=== PATIENT | male | born 1970 | race Caucasian/White ===

== ENCOUNTER 2021-03-02 11:21 | Inpatient (IN) | payer MEDICARE, OTHER ==
[~2021-03-02] VITALS: Ht 170.2 cm; Wt 54.5 kg
[2021-03-02] MEDS ORDERED: ipratropium/albuterol 3ml nebule NEB STA (12:16)
[2021-03-02] MEDS ORDERED: dexamethasone 4mg tablet PO ONE ×2 (12:20)
[2021-03-02 12:37] LABS: BASOPHILS # (AUTO) 0.1 X10'3 (0-0.2); EOSINOPHILS # (AUTO) 0.1 X10'3 (0-0.9); HEMATOCRIT 34.2 % (42.0-52.0); HEMOGLOBIN 11.3 g/dl (14.0-17.9); LYMPHOCYTES # (AUTO) 2.7 X10'3 (1.1-4.8); MEAN CORPUSCULAR HEMOGLOBIN 30.5 PG (27.0-31.0); MEAN CORPUSCULAR HGB CONC 32.9 g/dL (33.0-36.5); MEAN CORPUSCULAR VOLUME 92.6 FL (78-98); MONOCYTES # (AUTO) 1.4 X10'3 (0-0.9); NEUTROPHILS % (AUTO) 79.6 % (42-75)
[2021-03-02 12:38] LABS: BASOPHILS % (AUTO) 0.5 % (0-1); EOSINOPHILS % (AUTO) 0.4 % (0-6); LYMPHOCYTES % (AUTO) 12.9 % (21-51); MEAN PLATELET VOLUME 6.7 FL (7.4-10.4); MONOCYTES % (AUTO) 6.6 % (2-12); NEUTROPHILS # (AUTO) 16.4 X10'3 (1.8-7.7); PLATELET COUNT 642 X10'3 (140-440); RED CELL DISTRIBUTION WIDTH 14.1 % (11.5-14.5); WHITE BLOOD COUNT 20.6 X10'3 (4.5-11.0)
[2021-03-02 12:45] LABS: ALBUMIN 1.8 G/DL (3.4-5.0); ANION GAP 6 (8-16); BLOOD UREA NITROGEN 17 MG/DL (7-18); BUN/CREATININE RATIO 19.3 (5.4-32.0); CALCIUM 8.3 MG/DL (8.5-10.1); CHLORIDE 98 MMOL/L (99-107); CREATININE 0.88 MG/DL (0.60-1.10); GLUCOSE 118 MG/DL (70-104); POTASSIUM 4.1 MMOL/L (3.5-5.1); SODIUM 138 MMOL/L (135-145); eGFR > 90 ML/MIN
[2021-03-02] MEDS ORDERED: CefTRIAXone/D5W-Rocephin 1gm 50 ML IV ONE (13:00)
[2021-03-02] MEDS ORDERED: normal saline 1000ml 1,000 ML IV ONE (13:00)
[2021-03-02] MEDS ORDERED: iohexol 300mg/ml 100ml inj. ONE (13:10)
[2021-03-02] MEDS ORDERED: piperacillin/tazo 4.5gm/100ml 100 ML IV ONE (14:13)
[2021-03-02] MEDS ORDERED: FLUT1DIS15 INH (15:18)
[2021-03-02] MEDS ORDERED: IPRA4AER IH (15:19)
[2021-03-02] MEDS ORDERED: AZEL23SP BOTHNARES (15:19)
[2021-03-02] MEDS ORDERED: bisacodyl 10mg suppository rectal RC PRN (15:20)
[2021-03-02] MEDS ORDERED: acetaminophen 325mg tablet PO PRN ×2 (15:20)
[2021-03-02] MEDS ORDERED: HYDROmorphone inj. 0.5 MG/0.5 ML DISP.SYRIN IV PRN (15:20)
[2021-03-02] MEDS ORDERED: ondansetron 4mg rapidly disintigrating tab PO PRN (15:20)
[2021-03-02] MEDS ORDERED: diphenhydrAMINE 25mg capsule PO PRN (15:20)
[2021-03-02] MEDS ORDERED: diphenhydrAMINE 50 mg/ml inj IV PRN (15:20)
[2021-03-02] MEDS ORDERED: morphine 2 MG/ML inj. syringe IV PRN ×2 (15:20)
[2021-03-02] MEDS ORDERED: ondansetron/PF 4mg/2ml inj IV PRN (15:20)
[2021-03-02] MEDS ORDERED: mag hydrox/Alum hydrox/simeth 30ml oral suspension PO PRN (15:20)
[2021-03-02] MEDS ORDERED: HYDROcodone/acetaminophen 5mg/325mg tablet PO PRN (15:20)
[2021-03-02] MEDS ORDERED: acetaminophen 650mg rectal suppository RC PRN (15:20)
[2021-03-02] MEDS ORDERED: magnesium hydroxide 30ml (MOM) UD suspension PO PRN (15:20)
[2021-03-02] MEDS: normal saline 1000ml 1,000 ML IV SCH (15:43)
[2021-03-02 15:56] LABS: PARTIAL THROMBOPLASTIN TIME 23 SECONDS (22-32)
[2021-03-02 16:03] LABS: HEMOGLOBIN A1C 5.5 % (4.5-6.2)
[2021-03-02 16:09] LABS: CREATINE KINASE 29 U/L (39-308); MAGNESIUM 2.2 MG/DL (1.5-2.4); PHOSPHORUS 2.8 MG/DL (2.3-4.5)
[2021-03-02 16:26] LABS: HIV ANTIBODY 1&2 RAPID NON-REACTIVE (Neg)
[2021-03-02 16:31] LABS: URINE AMPHETAMINE SCREEN NEGATIVE (Neg); URINE BARBITUATE SCREEN NEGATIVE (Neg); URINE BENZODIAZEPINES SCREEN NEGATIVE (Neg); URINE CANNABINOID SCREEN NEGATIVE (Neg); URINE COCAINE SCREEN NEGATIVE (Neg); URINE METHADONE SCREEN NEGATIVE (Neg); URINE OPIATE SCREEN NEGATIVE (Neg); URINE PHENCYCLIDINE SCREEN NEGATIVE (Neg)
[2021-03-02 16:33] LABS: CLARITY,URINE CLEAR (Clear); COLOR,URINE Yellow (Yellow); UA COLLECTION TYPE CLN CATCH MIDSTREAM
[2021-03-02 16:34] LABS: GLUCOSE, URINE Negative (Neg); KETONES,URINE Negative (Neg); LEUKOCYTE ESTERASE ,URINE NEGATIVE (Neg); NITRITES, URINE NEGATIVE (Neg); OCCULT BLOOD,URINE NEGATIVE (Neg); PROTEIN,URINE Negative (Neg); UROBILINOGEN,URINE 0.2 E.U/dL (0.2-1.0)
[2021-03-02 18:00] VITALS: BP 127/89
--- NOTE | 2021-03-02 18:40 | NUR ---
Problems reprioritized. Patient report given, questions answered & plan of care reviewed with FORD Minor.
[2021-03-02] MEDS: ipratropium/albuterol 3ml nebule NEB SCH ×2 (19:00→23:33)
[2021-03-02] MEDS: vancomycin/NS 1 GM ADD-VANTAGE 250 ML IV SCH (20:00)
[2021-03-02] MEDS: docusate sod 100mg capsule PO SCH (20:54)
[2021-03-02] MEDS: methylPREDNISolone sod succ/PF 40mg inj. IV SCH (20:54)
[2021-03-02] MEDS: heparin, porcine 5000 units/ml vial SQ SCH (20:54)
[2021-03-02] MEDS: CLINDAMYCIN 300mg/NS 50ml IVPB 50 ML IV SCH (20:54)
[2021-03-02] MEDS: HYDROcodone/acetaminophen 10/325mg tab PO PRN (20:55)
[2021-03-02] MEDS ORDERED: temazepam 15mg capsule PO PRN (21:00)
[2021-03-03] VITALS (7 sets, daily range): BP systolic 110–132; BP diastolic 68–81
[2021-03-03] MEDS: normal saline 1000ml 1,000 ML IV SCH ×3 (01:43→21:20)
[2021-03-03] MEDS: ipratropium/albuterol 3ml nebule NEB SCH ×6 (03:00→22:40)
[2021-03-03] MEDS: CLINDAMYCIN 300mg/NS 50ml IVPB 50 ML IV SCH (03:41)
[2021-03-03 05:54] LABS: EOSINOPHILS % (AUTO) 0 % (0-6); HEMOGLOBIN 10.9 g/dl (14.0-17.9); RED CELL DISTRIBUTION WIDTH 14.3 % (11.5-14.5)
[2021-03-03 05:57] LABS: BASOPHILS % (AUTO) 0.1 % (0-1); HEMATOCRIT 31.8 % (42.0-52.0); LYMPHOCYTES # (AUTO) 1.5 X10'3 (1.1-4.8); LYMPHOCYTES % (AUTO) 8.5 % (21-51); MEAN CORPUSCULAR HEMOGLOBIN 31.4 PG (27.0-31.0); MEAN CORPUSCULAR HGB CONC 34.1 g/dL (33.0-36.5); MEAN PLATELET VOLUME 6.5 FL (7.4-10.4); MONOCYTES # (AUTO) 0.4 X10'3 (0-0.9); MONOCYTES % (AUTO) 2.2 % (2-12); NEUTROPHILS # (AUTO) 15.7 X10'3 (1.8-7.7); NEUTROPHILS % (AUTO) 89.2 % (42-75); PLATELET COUNT 661 X10'3 (140-440); RED BLOOD COUNT 3.45 X10'6 (4.70-6.10); WHITE BLOOD COUNT 17.6 X10'3 (4.5-11.0)
[2021-03-03 06:33] LABS: ALANINE AMINOTRANSFERASE 22 U/L (12-78); ALBUMIN 1.7 G/DL (3.4-5.0); ALBUMIN/GLOBULIN RATIO 0.3 (1.1-1.5); ALKALINE PHOSPHATASE 127 IU/L (46-116); ANION GAP 6 (8-16); ASPARTATE AMINO TRANSFERASE 14 U/L (10-37); BILIRUBIN,TOTAL 0.1 MG/DL (0.1-1.0); BLOOD UREA NITROGEN 20 MG/DL (7-18); BUN/CREATININE RATIO 20.2 (5.4-32.0); CALCIUM 8.8 MG/DL (8.5-10.1); CHLORIDE 105 MMOL/L (99-107); CREATININE 0.99 MG/DL (0.60-1.10); GLUCOSE 130 MG/DL (70-104); POTASSIUM 4.7 MMOL/L (3.5-5.1); SODIUM 140 MMOL/L (135-145); TOTAL CARBON DIOXIDE 29.5 MMOL/L (24-32); eGFR 79 ML/MIN
[2021-03-03 06:59] LABS: PLATELET ESTIMATE INCREASED; TOTAL CELLS COUNTED 100
--- NOTE | 2021-03-03 07:14 | NUR ---
Patient in room PCU 3027. I have received report from FORD HERNANDEZ, and had the opportunity to ask questions and assume patient care.
[2021-03-03] MEDS: heparin, porcine 5000 units/ml vial SQ SCH ×2 (08:44→20:57)
[2021-03-03] MEDS: methylPREDNISolone sod succ/PF 40mg inj. IV SCH ×2 (08:44→20:57)
[2021-03-03] MEDS: docusate sod 100mg capsule PO SCH ×2 (08:45→20:57)
[2021-03-03] MEDS: pantoprazole 40mg Tablet.DR PO SCH (08:55)
[2021-03-03] MEDS: piperacillin/tazo 4.5gm/100ml 100 ML IV SCH ×3 (08:55→16:06)
[2021-03-03] MEDS: vancomycin/NS 1 GM ADD-VANTAGE 250 ML IV SCH ×2 (10:08→20:00)
--- NOTE | 2021-03-03 13:33 | NUR ---
PT SHOWED THIS NURSE A SMALL ROCK REPORTING THE ROCK, PLUS 2 OTHER ROCKS, HAD BEEN IN HIS DINNER ROLL. PT REPORTS THAT HE SWALLOWED THE OTHER 2 ROCKS. THE PT WANTED TO SEE THE BALL MILL OPERATOR AND HAVE THE HOSPITAL PAY FOR DENTAL CARE. THE DINNER ROLL WAS A WHOLE WHEAT ROLL WRAPPED IN PLASTIC. THE ROCK WAS BAGGED AND GIVEN TO CN. CN SAID SHE WOULD TAKE CARE OF IT. Addendum: 03/03/21 at 1338 by Lori Gibbs RN CALLING THE KITCHEN.
--- NOTE | 2021-03-03 18:16 | NUR ---
Problems reprioritized. Patient report given, questions answered & plan of care reviewed with FORD WHITNEY.
[2021-03-03] MEDS: lactobacillus rhamnosus 10,000 MMU CELLS/CAPSULE PO SCH (20:57)
[2021-03-04] MEDS: piperacillin/tazo 4.5gm/100ml 100 ML IV SCH ×2 (04:00→07:11)
[2021-03-04] MEDS: ipratropium/albuterol 3ml nebule NEB SCH ×7 (04:02→23:16)
[2021-03-04 06:00] VITALS: BP 121/78
--- NOTE | 2021-03-04 06:25 | NUR ---
Patient in room PCU 3027. I have received report from FORD SAMUELS, and had the opportunity to ask questions and assume patient care.
[2021-03-04] MEDS: normal saline 1000ml 1,000 ML IV SCH (07:11)
[2021-03-04] MEDS ORDERED: VANCOMYCIN LEVEL IV ONE (07:30)
[2021-03-04] MEDS: docusate sod 100mg capsule PO SCH ×2 (08:49→20:35)
[2021-03-04] MEDS: methylPREDNISolone sod succ/PF 40mg inj. IV SCH ×2 (08:49→20:35)
[2021-03-04] MEDS: lactobacillus rhamnosus 10,000 MMU CELLS/CAPSULE PO SCH ×2 (08:50→20:35)
[2021-03-04] MEDS: heparin, porcine 5000 units/ml vial SQ SCH ×2 (08:50→20:35)
[2021-03-04] MEDS: pantoprazole 40mg Tablet.DR PO SCH (10:16)
[2021-03-04] MEDS: vancomycin/NS 1 GM ADD-VANTAGE 250 ML IV SCH (10:16)
--- NOTE | 2021-03-04 10:20 | NUR ---
sputum sample sent to lab
[2021-03-04 10:42] LABS: BASOPHILS % (AUTO) 0.1 % (0-1); EOSINOPHILS % (AUTO) 0 % (0-6); LYMPHOCYTES # (AUTO) 1.4 X10'3 (1.1-4.8); MEAN CORPUSCULAR VOLUME 92.5 FL (78-98); MONOCYTES # (AUTO) 0.5 X10'3 (0-0.9); NEUTROPHILS % (AUTO) 88.6 % (42-75)
[2021-03-04 10:43] LABS: HEMATOCRIT 28.9 % (42.0-52.0); HEMOGLOBIN 9.8 g/dl (14.0-17.9); LYMPHOCYTES % (AUTO) 8.2 % (21-51); MEAN CORPUSCULAR HEMOGLOBIN 31.4 PG (27.0-31.0); MEAN CORPUSCULAR HGB CONC 33.9 g/dL (33.0-36.5); MEAN PLATELET VOLUME 6.2 FL (7.4-10.4); MONOCYTES % (AUTO) 3.1 % (2-12); NEUTROPHILS # (AUTO) 14.9 X10'3 (1.8-7.7); PLATELET COUNT 576 X10'3 (140-440); RED BLOOD COUNT 3.12 X10'6 (4.70-6.10); RED CELL DISTRIBUTION WIDTH 14.6 % (11.5-14.5); WHITE BLOOD COUNT 16.8 X10'3 (4.5-11.0)
[2021-03-04 10:54] LABS: ALANINE AMINOTRANSFERASE 21 U/L (12-78); ALBUMIN 1.8 G/DL (3.4-5.0); ALBUMIN/GLOBULIN RATIO 0.4 (1.1-1.5); ALKALINE PHOSPHATASE 118 IU/L (46-116); ANION GAP 7 (8-16); ASPARTATE AMINO TRANSFERASE 15 U/L (10-37); BILIRUBIN,TOTAL 0.1 MG/DL (0.1-1.0); BLOOD UREA NITROGEN 20 MG/DL (7-18); BUN/CREATININE RATIO 17.5 (5.4-32.0); CALCIUM 8.1 MG/DL (8.5-10.1); CHLORIDE 107 MMOL/L (99-107); CREATININE 1.14 MG/DL (0.60-1.10); GLUCOSE 138 MG/DL (70-104); SODIUM 141 MMOL/L (135-145); TOTAL CARBON DIOXIDE 27.1 MMOL/L (24-32); TOTAL PROTEIN 6.4 G/DL (6.4-8.2); VANCOMYCIN,TROUGH 10.5 UG/ML (6.0-14.0); eGFR 67 ML/MIN
[2021-03-04 11:00] VITALS: BP 125/78
[2021-03-04 11:27] LABS: PLATELET ESTIMATE INCREASED; TOTAL CELLS COUNTED 100
[2021-03-04] MEDS: CefTRIAXone 2gm/D5W 50ml BAG 50 ML IV SCH (12:05)
[2021-03-04 15:00] VITALS: BP 121/68
[2021-03-04 18:00] VITALS: BP 122/81
--- NOTE | 2021-03-04 18:19 | NUR ---
Problems reprioritized. Patient report given, questions answered & plan of care reviewed with FORD WHITNEY.
[2021-03-04 22:00] VITALS: BP 139/90
[2021-03-05] MEDS: clindamycin 600mg/D5W 50ml 50 ML IV SCH ×3 (00:30→16:23)
[2021-03-05 02:00] VITALS: BP 142/88
--- NOTE | 2021-03-05 05:30 | NUR ---
Patient in bed resting at this time. No signs of distress noted at this time. No C/O discomfort. Patient anxious with repeated requests for snacks throughout shift. VSS throughout shift. Patient aware of plan of care. call light and personal belongings placed within reach of patient. patient instructed to call for assistance.
[2021-03-05 06:39] LABS: ALANINE AMINOTRANSFERASE 29 U/L (12-78); ALBUMIN 1.9 G/DL (3.4-5.0); ALBUMIN/GLOBULIN RATIO 0.4 (1.1-1.5); ALKALINE PHOSPHATASE 121 IU/L (46-116); ANION GAP 6 (8-16); ASPARTATE AMINO TRANSFERASE 17 U/L (10-37); BILIRUBIN,TOTAL 0.1 MG/DL (0.1-1.0); BLOOD UREA NITROGEN 20 MG/DL (7-18); BUN/CREATININE RATIO 21.5 (5.4-32.0); CALCIUM 8.7 MG/DL (8.5-10.1); CHLORIDE 106 MMOL/L (99-107); CREATININE 0.93 MG/DL (0.60-1.10); GLUCOSE 131 MG/DL (70-104); POTASSIUM 4.4 MMOL/L (3.5-5.1); SODIUM 142 MMOL/L (135-145); TOTAL CARBON DIOXIDE 30.3 MMOL/L (24-32); TOTAL PROTEIN 6.7 G/DL (6.4-8.2); eGFR 85 ML/MIN
[2021-03-05 06:43] LABS: MEAN PLATELET VOLUME 6.4 FL (7.4-10.4); MONOCYTES # (AUTO) 0.6 X10'3 (0-0.9); MONOCYTES % (AUTO) 3.6 % (2-12); RED CELL DISTRIBUTION WIDTH 14.5 % (11.5-14.5); WHITE BLOOD COUNT 16.6 X10'3 (4.5-11.0)
[2021-03-05 06:46] LABS: BASOPHILS % (AUTO) 0.1 % (0-1); EOSINOPHILS % (AUTO) 0.1 % (0-6); HEMATOCRIT 32.5 % (42.0-52.0); LYMPHOCYTES # (AUTO) 1.4 X10'3 (1.1-4.8); LYMPHOCYTES % (AUTO) 8.7 % (21-51); MEAN CORPUSCULAR HEMOGLOBIN 31.3 PG (27.0-31.0); MEAN CORPUSCULAR HGB CONC 33.8 g/dL (33.0-36.5); MEAN CORPUSCULAR VOLUME 92.6 FL (78-98); NEUTROPHILS # (AUTO) 14.5 X10'3 (1.8-7.7); NEUTROPHILS % (AUTO) 87.5 % (42-75); PLATELET COUNT 626 X10'3 (140-440); RED BLOOD COUNT 3.51 X10'6 (4.70-6.10)
[2021-03-05] MEDS: ipratropium/albuterol 3ml nebule NEB SCH ×5 (07:13→23:19)
[2021-03-05 07:48] LABS: PLATELET ESTIMATE INCREASED; TOTAL CELLS COUNTED 100
[2021-03-05 08:00] VITALS: BP 123/72
[2021-03-05] MEDS: CefTRIAXone 2gm/D5W 50ml BAG 50 ML IV SCH (08:13)
[2021-03-05] MEDS: docusate sod 100mg capsule PO SCH ×2 (08:14→20:40)
[2021-03-05] MEDS: methylPREDNISolone sod succ/PF 40mg inj. IV SCH ×2 (08:14→20:40)
[2021-03-05] MEDS: lactobacillus rhamnosus 10,000 MMU CELLS/CAPSULE PO SCH ×2 (08:14→20:39)
[2021-03-05] MEDS: pantoprazole 40mg Tablet.DR PO SCH (08:14)
[2021-03-05] MEDS: heparin, porcine 5000 units/ml vial SQ SCH ×2 (08:15→20:40)
[2021-03-05 12:00] VITALS: BP 123/77
[2021-03-05 16:00] VITALS: BP 137/80
[2021-03-05 18:00] VITALS: BP 132/84
[2021-03-05 22:00] VITALS: BP 128/92
[2021-03-06] MEDS: clindamycin 600mg/D5W 50ml 50 ML IV SCH ×3 (00:26→16:59)
[2021-03-06 02:00] VITALS: BP 124/82
[2021-03-06] MEDS: ipratropium/albuterol 3ml nebule NEB SCH ×6 (03:22→23:53)
[2021-03-06 06:24] LABS: HEMOGLOBIN 11.1 g/dl (14.0-17.9)
[2021-03-06 06:26] LABS: BASOPHILS % (AUTO) 0.1 % (0-1); EOSINOPHILS % (AUTO) 0.1 % (0-6); HEMATOCRIT 32.5 % (42.0-52.0); LYMPHOCYTES # (AUTO) 2.3 X10'3 (1.1-4.8); LYMPHOCYTES % (AUTO) 10.5 % (21-51); MEAN CORPUSCULAR HEMOGLOBIN 31.7 PG (27.0-31.0); MEAN CORPUSCULAR HGB CONC 34.2 g/dL (33.0-36.5); MEAN CORPUSCULAR VOLUME 92.4 FL (78-98); MEAN PLATELET VOLUME 6.3 FL (7.4-10.4); MONOCYTES % (AUTO) 4.8 % (2-12); NEUTROPHILS # (AUTO) 18.1 X10'3 (1.8-7.7); NEUTROPHILS % (AUTO) 84.5 % (42-75); PLATELET COUNT 631 X10'3 (140-440); RED BLOOD COUNT 3.52 X10'6 (4.70-6.10); RED CELL DISTRIBUTION WIDTH 14.7 % (11.5-14.5); WHITE BLOOD COUNT 21.4 X10'3 (4.5-11.0)
--- NOTE | 2021-03-06 06:32 | NUR ---
no signs of distress noted. VSS throughout shift. patient with repeated requests for snacks during night. no C/O discomfort. call light and personal belongings placed within reach. report given to Belinda.
[2021-03-06 06:44] LABS: ALANINE AMINOTRANSFERASE 46 U/L (12-78); ALBUMIN/GLOBULIN RATIO 0.4 (1.1-1.5); ALKALINE PHOSPHATASE 143 IU/L (46-116); ANION GAP 5 (8-16); ASPARTATE AMINO TRANSFERASE 26 U/L (10-37); BILIRUBIN,TOTAL 0.1 MG/DL (0.1-1.0); BLOOD UREA NITROGEN 27 MG/DL (7-18); CALCIUM 8.7 MG/DL (8.5-10.1); CHLORIDE 103 MMOL/L (99-107); CREATININE 1.04 MG/DL (0.60-1.10); GLUCOSE 120 MG/DL (70-104); POTASSIUM 4.5 MMOL/L (3.5-5.1); SODIUM 137 MMOL/L (135-145); TOTAL CARBON DIOXIDE 28.7 MMOL/L (24-32); TOTAL PROTEIN 6.5 G/DL (6.4-8.2); eGFR 75 ML/MIN
[2021-03-06] MEDS: CefTRIAXone 2gm/D5W 50ml BAG 50 ML IV SCH (07:13)
[2021-03-06] MEDS: docusate sod 100mg capsule PO SCH ×2 (07:21→19:45)
[2021-03-06] MEDS: pantoprazole 40mg Tablet.DR PO SCH (07:21)
[2021-03-06] MEDS: lactobacillus rhamnosus 10,000 MMU CELLS/CAPSULE PO SCH ×2 (07:22→19:44)
[2021-03-06] MEDS: methylPREDNISolone sod succ/PF 40mg inj. IV SCH ×2 (07:22→19:45)
[2021-03-06] MEDS: heparin, porcine 5000 units/ml vial SQ SCH ×2 (07:22→19:45)
--- NOTE | 2021-03-06 07:36 | NUR ---
patient requested to end svn treatment before it was done so he could eat. Addendum: 03/06/21 at 0737 by Mary THAKUR Amended: Links added.
[2021-03-06] MEDS ORDERED: pneumococcal 23-VAL P-sac vacc 25 mcg/0.5ml vial IMVAC ONE (09:00)
[2021-03-06 11:12] LABS: TOTAL CELLS COUNTED 100
[2021-03-06 11:13] LABS: PLATELET ESTIMATE INCREASED
[2021-03-06 11:54] VITALS: BP 118/79
--- NOTE | 2021-03-06 14:53 | NUR ---
Initial: Pt admitted w/ increasing SOB, found to have R necrotic PNA. Pt currently on Regular diet eating well, mostly 100% of meals meeting needs. Pt also noted to be requesting snacks. LBM 03/05. No nutrition intervention implemented at this time, will continue to monitor. Recs: 1. Continue Regular diet as tolerated 2. Bowel care per rx 3. Scaled wt this admit, subsequent weekly wts Addendum: 03/06/21 at [address] Amended: Links added.
[2021-03-06 15:14] VITALS: BP 126/79
--- NOTE | 2021-03-06 16:44 | NUR ---
Attending was notified patient with complaints of sob. Orders were given for chest xray.
[2021-03-06 18:00] VITALS: BP 123/85
[2021-03-06 22:00] VITALS: BP 125/82
[2021-03-07] MEDS: clindamycin 600mg/D5W 50ml 50 ML IV SCH ×3 (00:25→16:50)
[2021-03-07] MEDS: ipratropium/albuterol 3ml nebule NEB SCH ×6 (04:05→23:20)
--- NOTE | 2021-03-07 05:46 | NUR ---
Patient in room resting at this time. No signs of discomfort noted. Patient states his breathing feels much better. VSS throughout shift. Patient with repeated requests for snacks throughout shift. Call light and personal belongings placed within reach. Assessment and vital signs charted in interventions.
[2021-03-07 05:59] LABS: BASOPHILS # (AUTO) 0.1 X10'3 (0-0.2); BASOPHILS % (AUTO) 0.4 % (0-1); EOSINOPHILS % (AUTO) 0.1 % (0-6); HEMATOCRIT 31.5 % (42.0-52.0); HEMOGLOBIN 10.7 g/dl (14.0-17.9); LYMPHOCYTES # (AUTO) 2.5 X10'3 (1.1-4.8); LYMPHOCYTES % (AUTO) 9.6 % (21-51); MEAN CORPUSCULAR HEMOGLOBIN 31.6 PG (27.0-31.0); MEAN CORPUSCULAR VOLUME 92.7 FL (78-98); MEAN PLATELET VOLUME 6.3 FL (7.4-10.4); NEUTROPHILS % (AUTO) 85.9 % (42-75); PLATELET COUNT 573 X10'3 (140-440); RED CELL DISTRIBUTION WIDTH 14.9 % (11.5-14.5)
--- NOTE | 2021-03-07 06:10 | NUR ---
Report given to FORD Welch.
--- NOTE | 2021-03-07 06:16 | NUR ---
Patient in room PCU 3027. I have received report from Jaden YOUNGBLOOD and had the opportunity to ask questions and assume patient care.
[2021-03-07 06:18] LABS: ALANINE AMINOTRANSFERASE 58 U/L (12-78); ALBUMIN/GLOBULIN RATIO 0.5 (1.1-1.5); ALKALINE PHOSPHATASE 115 IU/L (46-116); ANION GAP 4 (8-16); ASPARTATE AMINO TRANSFERASE 31 U/L (10-37); BILIRUBIN,TOTAL 0.1 MG/DL (0.1-1.0); BLOOD UREA NITROGEN 35 MG/DL (7-18); BUN/CREATININE RATIO 36.1 (5.4-32.0); CALCIUM 8.4 MG/DL (8.5-10.1); CHLORIDE 102 MMOL/L (99-107); CREATININE 0.97 MG/DL (0.60-1.10); GLUCOSE 106 MG/DL (70-104); POTASSIUM 4.5 MMOL/L (3.5-5.1); SODIUM 134 MMOL/L (135-145); TOTAL CARBON DIOXIDE 27.9 MMOL/L (24-32); TOTAL PROTEIN 6.2 G/DL (6.4-8.2); eGFR 81 ML/MIN
[2021-03-07 06:28] LABS: WHITE BLOOD COUNT 25.6 X10'3 (4.5-11.0)
--- NOTE | 2021-03-07 06:45 | NUR ---
Patient in room PCU 3027. I have received report from Jaden and had the opportunity to ask questions and assume patient care. Patient is awake and sitting up in bed, all needs met at this time.
[2021-03-07 07:00] VITALS: BP 132/81
[2021-03-07 07:05] LABS: TOTAL CELLS COUNTED 100
[2021-03-07 07:06] LABS: PLATELET ESTIMATE INCREASED
[2021-03-07 07:07] LABS: POLYCHROMASIA FEW
[2021-03-07] MEDS: heparin, porcine 5000 units/ml vial SQ SCH ×2 (08:20→19:26)
[2021-03-07] MEDS: docusate sod 100mg capsule PO SCH ×2 (08:20→19:25)
[2021-03-07] MEDS: pantoprazole 40mg Tablet.DR PO SCH (08:20)
[2021-03-07] MEDS: lactobacillus rhamnosus 10,000 MMU CELLS/CAPSULE PO SCH ×2 (08:20→19:25)
[2021-03-07] MEDS: predniSONE 20 mg tablet PO SCH (08:20)
[2021-03-07] MEDS: CefTRIAXone 2gm/D5W 50ml BAG 50 ML IV SCH (08:45)
[2021-03-07 11:00] VITALS: BP 116/80
[2021-03-07 15:00] VITALS: BP 120/75
--- NOTE | 2021-03-07 18:04 | NUR ---
[place] Medication Administration: For this medication-pass time frame, all medication were reviewed, dispensed, administered and documented per hospital policy by FORD Gore. [place] documentation: I have reviewed and agree with all interventions, assessments performed and documented by FORD Gore.
--- NOTE | 2021-03-07 18:14 | NUR ---
Problems reprioritized. Patient report given, questions answered & plan of care reviewed with Tracie YOUNGBLOOD. Patient in bed eating dinner in no acute distress.
[2021-03-08] MEDS: clindamycin 600mg/D5W 50ml 50 ML IV SCH ×3 (01:18→15:45)
[2021-03-08] MEDS: ipratropium/albuterol 3ml nebule NEB SCH ×5 (03:23→20:57)
[2021-03-08 05:00] VITALS: BP 120/70
[2021-03-08 06:00] VITALS: BP 112/70
[2021-03-08 06:13] LABS: BASOPHILS # (AUTO) 0.1 X10'3 (0-0.2); BASOPHILS % (AUTO) 0.6 % (0-1); EOSINOPHILS # (AUTO) 0.1 X10'3 (0-0.9); EOSINOPHILS % (AUTO) 0.6 % (0-6); HEMATOCRIT 33.6 % (42.0-52.0); HEMOGLOBIN 11.2 g/dl (14.0-17.9); LYMPHOCYTES # (AUTO) 4.4 X10'3 (1.1-4.8); LYMPHOCYTES % (AUTO) 18.3 % (21-51); MEAN CORPUSCULAR HGB CONC 33.2 g/dL (33.0-36.5); MEAN CORPUSCULAR VOLUME 93.5 FL (78-98); MEAN PLATELET VOLUME 6.6 FL (7.4-10.4); MONOCYTES # (AUTO) 1.3 X10'3 (0-0.9); MONOCYTES % (AUTO) 5.5 % (2-12); PLATELET COUNT 520 X10'3 (140-440)
--- NOTE | 2021-03-08 06:27 | NUR ---
Problems reprioritized. Patient report given, questions answered & plan of care reviewed with FORD Knight.
[2021-03-08 06:38] LABS: ALANINE AMINOTRANSFERASE 70 U/L (12-78); ALBUMIN 2.1 G/DL (3.4-5.0); ALBUMIN/GLOBULIN RATIO 0.5 (1.1-1.5); ALKALINE PHOSPHATASE 109 IU/L (46-116); ANION GAP 6 (8-16); ASPARTATE AMINO TRANSFERASE 32 U/L (10-37); BILIRUBIN,TOTAL 0.1 MG/DL (0.1-1.0); BLOOD UREA NITROGEN 33 MG/DL (7-18); BUN/CREATININE RATIO 36.7 (5.4-32.0); CALCIUM 8.6 MG/DL (8.5-10.1); CHLORIDE 103 MMOL/L (99-107); GLUCOSE 92 MG/DL (70-104); POTASSIUM 3.8 MMOL/L (3.5-5.1); SODIUM 140 MMOL/L (135-145); TOTAL CARBON DIOXIDE 30.7 MMOL/L (24-32); TOTAL PROTEIN 6.2 G/DL (6.4-8.2); eGFR 89 ML/MIN
[2021-03-08] MEDS: heparin, porcine 5000 units/ml vial SQ SCH ×2 (07:59→21:40)
[2021-03-08] MEDS: predniSONE 20 mg tablet PO SCH (07:59)
[2021-03-08] MEDS: pantoprazole 40mg Tablet.DR PO SCH (07:59)
[2021-03-08] MEDS: lactobacillus rhamnosus 10,000 MMU CELLS/CAPSULE PO SCH ×2 (07:59→21:39)
[2021-03-08] MEDS: docusate sod 100mg capsule PO SCH ×2 (08:00→20:00)
[2021-03-08] MEDS: CefTRIAXone 2gm/D5W 50ml BAG 50 ML IV SCH (08:00)
[2021-03-08 09:04] LABS: TOTAL CELLS COUNTED 100
[2021-03-08 09:05] LABS: ANISOCYTOSIS FEW; PLATELET ESTIMATE INCREASED
[2021-03-08 09:06] LABS: HYPERSEGMENTED NEUTROPHILS FEW; POLYCHROMASIA FEW; SMUDGE CELLS FEW
[2021-03-08 11:00] VITALS: BP 113/75
[2021-03-08 15:00] VITALS: BP 115/81
[2021-03-08] MEDS: levoFLOXACIN 750MG TABLET PO SCH (15:45)
[2021-03-08 18:00] VITALS: BP 107/70
--- NOTE | 2021-03-08 18:49 | NUR ---
Problems reprioritized. Patient report given, questions answered & plan of care reviewed with Tracie YOUNGBLOOD.
[2021-03-08 22:00] VITALS: BP 101/77
[2021-03-09] MEDS: ipratropium/albuterol 3ml nebule NEB SCH ×7 (00:11→23:00)
[2021-03-09] MEDS: clindamycin 600mg/D5W 50ml 50 ML IV SCH ×4 (00:42→23:54)
[2021-03-09 02:00] VITALS: BP 113/72
[2021-03-09 06:00] VITALS: BP 130/82
[2021-03-09 06:15] LABS: BASOPHILS # (AUTO) 0.1 X10'3 (0-0.2); BASOPHILS % (AUTO) 0.2 % (0-1); EOSINOPHILS # (AUTO) 0.1 X10'3 (0-0.9); EOSINOPHILS % (AUTO) 0.3 % (0-6); HEMATOCRIT 32.7 % (42.0-52.0); HEMOGLOBIN 10.9 g/dl (14.0-17.9); LYMPHOCYTES % (AUTO) 16.2 % (21-51); MEAN CORPUSCULAR HEMOGLOBIN 31.4 PG (27.0-31.0); MEAN CORPUSCULAR HGB CONC 33.4 g/dL (33.0-36.5); MEAN CORPUSCULAR VOLUME 94.1 FL (78-98); MEAN PLATELET VOLUME 6.2 FL (7.4-10.4); MONOCYTES # (AUTO) 1.3 X10'3 (0-0.9); MONOCYTES % (AUTO) 5.2 % (2-12); NEUTROPHILS # (AUTO) 19.1 X10'3 (1.8-7.7); NEUTROPHILS % (AUTO) 78.1 % (42-75); PLATELET COUNT 454 X10'3 (140-440); RED BLOOD COUNT 3.48 X10'6 (4.70-6.10); WHITE BLOOD COUNT 24.4 X10'3 (4.5-11.0)
--- NOTE | 2021-03-09 07:15 | NUR ---
Problems reprioritized. Patient report given, questions answered & plan of care reviewed with FORD Dawkins.
[2021-03-09 07:41] LABS: ALANINE AMINOTRANSFERASE 81 U/L (12-78); ALBUMIN 2.2 G/DL (3.4-5.0); ALBUMIN/GLOBULIN RATIO 0.6 (1.1-1.5); ALKALINE PHOSPHATASE 104 IU/L (46-116); ANION GAP 7 (8-16); ASPARTATE AMINO TRANSFERASE 29 U/L (10-37); BILIRUBIN,TOTAL 0.1 MG/DL (0.1-1.0); BLOOD UREA NITROGEN 32 MG/DL (7-18); CALCIUM 8.6 MG/DL (8.5-10.1); CHLORIDE 103 MMOL/L (99-107); CREATININE 0.94 MG/DL (0.60-1.10); GLUCOSE 90 MG/DL (70-104); POTASSIUM 4.5 MMOL/L (3.5-5.1); SODIUM 140 MMOL/L (135-145); TOTAL CARBON DIOXIDE 30.1 MMOL/L (24-32); TOTAL PROTEIN 6.2 G/DL (6.4-8.2); eGFR 84 ML/MIN
[2021-03-09] MEDS: docusate sod 100mg capsule PO SCH ×2 (08:00→20:00)
[2021-03-09] MEDS: pantoprazole 40mg Tablet.DR PO SCH (08:16)
[2021-03-09] MEDS: lactobacillus rhamnosus 10,000 MMU CELLS/CAPSULE PO SCH ×2 (08:16→21:03)
[2021-03-09] MEDS: predniSONE 20 mg tablet PO SCH (08:16)
[2021-03-09] MEDS: heparin, porcine 5000 units/ml vial SQ SCH ×2 (08:17→21:02)
[2021-03-09 09:08] LABS: TOTAL CELLS COUNTED 100
[2021-03-09 09:09] LABS: PLATELET ESTIMATE INCREASED; POLYCHROMASIA FEW
[2021-03-09 11:00] VITALS: BP 106/69
[2021-03-09] MEDS: levoFLOXACIN 750MG TABLET PO SCH (13:09)
[2021-03-09 15:00] VITALS: BP 109/71
[2021-03-09 18:00] VITALS: BP 111/73
[2021-03-09 22:00] VITALS: BP 114/69
[2021-03-10 02:00] VITALS: BP 121/64
[2021-03-10] MEDS: ipratropium/albuterol 3ml nebule NEB SCH ×5 (02:36→23:06)
[2021-03-10 06:00] VITALS: BP 111/73
--- NOTE | 2021-03-10 06:11 | NUR ---
Problems reprioritized. Patient report given, questions answered & plan of care reviewed with FORD Serna.
[2021-03-10] MEDS: docusate sod 100mg capsule PO SCH ×2 (08:05→20:44)
[2021-03-10] MEDS: lactobacillus rhamnosus 10,000 MMU CELLS/CAPSULE PO SCH ×2 (08:05→20:44)
[2021-03-10] MEDS: pantoprazole 40mg Tablet.DR PO SCH (08:05)
[2021-03-10] MEDS: predniSONE 20 mg tablet PO SCH (08:05)
[2021-03-10] MEDS: clindamycin 600mg/D5W 50ml 50 ML IV SCH ×2 (08:05→16:51)
[2021-03-10] MEDS: heparin, porcine 5000 units/ml vial SQ SCH ×2 (08:05→20:45)
[2021-03-10 10:01] LABS: BASOPHILS % (AUTO) 0.2 % (0-1); EOSINOPHILS # (AUTO) 0.1 X10'3 (0-0.9); EOSINOPHILS % (AUTO) 0.7 % (0-6); HEMATOCRIT 32.5 % (42.0-52.0); LYMPHOCYTES # (AUTO) 3.9 X10'3 (1.1-4.8); LYMPHOCYTES % (AUTO) 19.6 % (21-51); MEAN CORPUSCULAR HEMOGLOBIN 31.5 PG (27.0-31.0); MEAN CORPUSCULAR HGB CONC 33.8 g/dL (33.0-36.5); MEAN CORPUSCULAR VOLUME 93.4 FL (78-98); MEAN PLATELET VOLUME 6.3 FL (7.4-10.4); MONOCYTES # (AUTO) 1.1 X10'3 (0-0.9); MONOCYTES % (AUTO) 5.7 % (2-12); NEUTROPHILS # (AUTO) 14.5 X10'3 (1.8-7.7); NEUTROPHILS % (AUTO) 73.8 % (42-75); PLATELET COUNT 368 X10'3 (140-440); RED BLOOD COUNT 3.48 X10'6 (4.70-6.10); RED CELL DISTRIBUTION WIDTH 15.7 % (11.5-14.5); WHITE BLOOD COUNT 19.7 X10'3 (4.5-11.0)
--- NOTE | 2021-03-10 10:01 | NUR ---
Reassessment: Pt continues eating well on regular diet documented with mostly 100% PO intake. Per ruffler pt with excessive eating and frequently requesting snacks. D/w dietary to send double protein TIDWM for satiety. LBM 03/09 per I&O. Will continue to follow and monitor need for further nutrition intervention. Recommendations: 1. Continue regular diet 2. Double eggs WB, double meat BIDLD for satiety 3. Routine bowel care 4. Scaled wt this admit, subsequent weekly wts Addendum: 03/10/21 at [address] Amended: Links added.
[2021-03-10 11:00] VITALS: BP 107/65
[2021-03-10] MEDS: levoFLOXACIN 750MG TABLET PO SCH (11:46)
[2021-03-10 12:02] LABS: PLATELET ESTIMATE NORMAL; POLYCHROMASIA FEW; TOTAL CELLS COUNTED 100
[2021-03-10 15:00] VITALS: BP 108/64
[2021-03-10 18:00] VITALS: BP 109/74
--- NOTE | 2021-03-10 18:24 | NUR ---
Problems reprioritized. Patient report given, questions answered & plan of care reviewed with Margarita YOUNGBLOOD.
--- NOTE | 2021-03-10 19:26 | NUR ---
Patient in room PCU 3027. I have received report from Mariza YOUNGBLOOD and had the opportunity to ask questions and assume patient care.
[2021-03-10 22:00] VITALS: BP 123/60
[2021-03-11] MEDS: HYDROcodone/acetaminophen 10/325mg tab PO PRN (01:10)
[2021-03-11] MEDS: clindamycin 600mg/D5W 50ml 50 ML IV SCH ×3 (01:10→16:38)
[2021-03-11 02:00] VITALS: BP 132/64
[2021-03-11] MEDS: ipratropium/albuterol 3ml nebule NEB SCH ×5 (02:30→21:03)
[2021-03-11 06:00] VITALS: BP 114/75
--- NOTE | 2021-03-11 06:56 | NUR ---
Problems reprioritized. Patient report given, questions answered & plan of care reviewed with Mariza YOUNGBLOOD.
[2021-03-11 07:16] LABS: BASOPHILS % (AUTO) 0.2 % (0-1); EOSINOPHILS # (AUTO) 0.1 X10'3 (0-0.9); EOSINOPHILS % (AUTO) 0.5 % (0-6); HEMATOCRIT 33.4 % (42.0-52.0); HEMOGLOBIN 11.2 g/dl (14.0-17.9); LYMPHOCYTES # (AUTO) 2.7 X10'3 (1.1-4.8); LYMPHOCYTES % (AUTO) 14.9 % (21-51); MEAN CORPUSCULAR HEMOGLOBIN 31.5 PG (27.0-31.0); MEAN CORPUSCULAR HGB CONC 33.4 g/dL (33.0-36.5); MEAN CORPUSCULAR VOLUME 94.2 FL (78-98); MEAN PLATELET VOLUME 6.4 FL (7.4-10.4); MONOCYTES # (AUTO) 1.1 X10'3 (0-0.9); MONOCYTES % (AUTO) 5.9 % (2-12); NEUTROPHILS # (AUTO) 14.3 X10'3 (1.8-7.7); NEUTROPHILS % (AUTO) 78.5 % (42-75); PLATELET COUNT 335 X10'3 (140-440); RED BLOOD COUNT 3.55 X10'6 (4.70-6.10); WHITE BLOOD COUNT 18.2 X10'3 (4.5-11.0)
[2021-03-11] MEDS: docusate sod 100mg capsule PO SCH ×2 (08:00→20:00)
[2021-03-11] MEDS: predniSONE 20 mg tablet PO SCH (08:46)
[2021-03-11] MEDS: lactobacillus rhamnosus 10,000 MMU CELLS/CAPSULE PO SCH ×2 (08:46→21:30)
[2021-03-11] MEDS: pantoprazole 40mg Tablet.DR PO SCH (08:48)
[2021-03-11] MEDS: heparin, porcine 5000 units/ml vial SQ SCH ×2 (08:50→21:33)
[2021-03-11 11:00] VITALS: BP 121/67
[2021-03-11] MEDS: levoFLOXACIN 750MG TABLET PO SCH (11:42)
[2021-03-11 12:12] LABS: ANISOCYTOSIS 1+; PLATELET ESTIMATE NORMAL; POLYCHROMASIA 1+; TOTAL CELLS COUNTED 100
[2021-03-11 15:00] VITALS: BP 108/76
[2021-03-11 18:00] VITALS: BP 109/81
--- NOTE | 2021-03-11 18:21 | NUR ---
Problems reprioritized. Patient report given, questions answered & plan of care reviewed with Margarita YOUNGBLOOD.
[2021-03-11 22:00] VITALS: BP 99/65
[2021-03-12] MEDS: clindamycin 600mg/D5W 50ml 50 ML IV SCH ×3 (00:54→15:56)
[2021-03-12 02:00] VITALS: BP 102/66
[2021-03-12] MEDS: ipratropium/albuterol 3ml nebule NEB SCH ×6 (02:47→23:00)
[2021-03-12 07:00] VITALS: BP 96/67
--- NOTE | 2021-03-12 07:24 | NUR ---
Patient in room PCU 3024I. I have received report from FORD GRIMM and had the opportunity to ask questions and assume patient care.
[2021-03-12] MEDS: docusate sod 100mg capsule PO SCH ×2 (08:00→20:08)
[2021-03-12] MEDS: lactobacillus rhamnosus 10,000 MMU CELLS/CAPSULE PO SCH ×2 (08:20→20:08)
[2021-03-12] MEDS: pantoprazole 40mg Tablet.DR PO SCH (08:20)
[2021-03-12] MEDS: heparin, porcine 5000 units/ml vial SQ SCH ×2 (08:20→20:08)
[2021-03-12] MEDS: prednisone 10mg tablet PO SCH (08:30)
--- NOTE | 2021-03-12 08:53 | NUR ---
Problems reprioritized. Patient report given, questions answered & plan of care reviewed with Kassandra YOUNGBLOOD.
[2021-03-12 11:00] VITALS: BP 103/65
[2021-03-12] MEDS: fluticasone nasal spray 16GM bottle NS SCH (15:56)
[2021-03-12] MEDS: levoFLOXACIN 750MG TABLET PO SCH (15:56)
[2021-03-12 16:00] VITALS: BP 114/70
[2021-03-12 18:00] VITALS: BP 105/74
--- NOTE | 2021-03-12 19:21 | NUR ---
Problems reprioritized. Patient report given, questions answered & plan of care reviewed with FORD LOZANO.
[2021-03-13 00:26] VITALS: BP 116/73
[2021-03-13] MEDS: clindamycin 600mg/D5W 50ml 50 ML IV SCH ×3 (00:26→16:22)
[2021-03-13] MEDS: ipratropium/albuterol 3ml nebule NEB SCH ×5 (02:39→20:11)
[2021-03-13 06:21] LABS: BASOPHILS # (AUTO) 0.1 X10'3 (0-0.2); BASOPHILS % (AUTO) 0.6 % (0-1); EOSINOPHILS # (AUTO) 0.1 X10'3 (0-0.9); EOSINOPHILS % (AUTO) 0.7 % (0-6); HEMATOCRIT 34.9 % (42.0-52.0); HEMOGLOBIN 11.7 g/dl (14.0-17.9); LYMPHOCYTES # (AUTO) 2.7 X10'3 (1.1-4.8); LYMPHOCYTES % (AUTO) 16.4 % (21-51); MEAN CORPUSCULAR HEMOGLOBIN 31.8 PG (27.0-31.0); MEAN CORPUSCULAR HGB CONC 33.5 g/dL (33.0-36.5); MEAN PLATELET VOLUME 6.5 FL (7.4-10.4); MONOCYTES # (AUTO) 1.1 X10'3 (0-0.9); MONOCYTES % (AUTO) 6.5 % (2-12); NEUTROPHILS # (AUTO) 12.7 X10'3 (1.8-7.7); NEUTROPHILS % (AUTO) 75.8 % (42-75); PLATELET COUNT 279 X10'3 (140-440); RED BLOOD COUNT 3.67 X10'6 (4.70-6.10); RED CELL DISTRIBUTION WIDTH 16.6 % (11.5-14.5); WHITE BLOOD COUNT 16.7 X10'3 (4.5-11.0)
[2021-03-13 06:33] LABS: ALBUMIN 2.6 G/DL (3.4-5.0); ANION GAP 8 (8-16); BLOOD UREA NITROGEN 34 MG/DL (7-18); CALCIUM 8.9 MG/DL (8.5-10.1); CHLORIDE 102 MMOL/L (99-107); GLUCOSE 84 MG/DL (70-104); POTASSIUM 4.1 MMOL/L (3.5-5.1); SODIUM 140 MMOL/L (135-145); TOTAL CARBON DIOXIDE 29.9 MMOL/L (24-32); eGFR 78 ML/MIN
[2021-03-13 07:00] VITALS: BP 115/78
--- NOTE | 2021-03-13 07:10 | NUR ---
Patient in room PCU 3027. I have received report from Jerrica YOUNGBLOOD and had the opportunity to ask questions and assume patient care.
[2021-03-13 07:18] LABS: ANISOCYTOSIS 1+; NUCLEATED RED BLOOD CELLS 1 /100WBC (0-0); PLATELET ESTIMATE NORMAL; TOTAL CELLS COUNTED 100
[2021-03-13] MEDS: pantoprazole 40mg Tablet.DR PO SCH (07:30)
[2021-03-13] MEDS: docusate sod 100mg capsule PO SCH ×2 (08:00→19:52)
[2021-03-13] MEDS: fluticasone nasal spray 16GM bottle NS SCH (08:48)
[2021-03-13] MEDS: heparin, porcine 5000 units/ml vial SQ SCH ×2 (08:49→19:52)
[2021-03-13] MEDS: lactobacillus rhamnosus 10,000 MMU CELLS/CAPSULE PO SCH ×2 (08:49→19:51)
[2021-03-13] MEDS: prednisone 10mg tablet PO SCH (08:49)
[2021-03-13 11:00] VITALS: BP 108/70
[2021-03-13] MEDS: levoFLOXACIN 750MG TABLET PO SCH (11:02)
[2021-03-13 15:00] VITALS: BP 121/71
[2021-03-13 18:00] VITALS: BP 113/77
--- NOTE | 2021-03-13 18:32 | NUR ---
Problems reprioritized. Patient report given, questions answered & plan of care reviewed with Tracie YOUNGBLOOD.
[2021-03-13] MEDS ORDERED: LEVO750T46 PO (20:51)
[2021-03-13] MEDS ORDERED: DOCU100C40 PO (20:51)
[2021-03-13] MEDS ORDERED: IPRA3AMP9 IH (20:51)
[2021-03-13] MEDS ORDERED: FLUT16SP13 BOTHNARES (20:51)
[2021-03-13] MEDS ORDERED: PANT-47 PO (20:51)
[2021-03-13] MEDS ORDERED: LACT1CAP26 PO (20:51)
[2021-03-13] MEDS ORDERED: TEMA15CA PO (20:51)
--- NOTE | 2021-03-13 21:10 | NUR ---
Pt Discharged to mental health unit. Pt is stable for discharge to mental health unit per MD orders. All discharge questions were reviewed and answered. Tele monitor dc'd, pt belongings collected and labeled. Pt was transported to the mental health by the mental health nurses josé Garcia CNA
[2021-03-13] MEDS ORDERED: ONDA4TAB12 PO (21:19)
[2021-03-13] MEDS ORDERED: HYDR-3972 PO (21:19)
[2021-03-13] MEDS ORDERED: DIPH25CA83 PO (21:19)
== END 2021-03-13 21:10 | DRG 178 ==
LOC: ER 11:22 → PCU 3S 15:22
PROVIDERS: ADMIT Family Medicine; ATTEND Family Medicine
PROC: 3E0234Z Introduction of Serum, Toxoid and Vaccine into Muscle, Percutaneous Approach (ICD-10-PCS; principal; 2021-03-06)
DX: J85.1 Abscess of lung with pneumonia (principal); J44.1 Chronic obstructive pulmonary disease with (acute) exacerbation; F15.20 Other stimulant dependence, uncomplicated; J44.0 Chronic obstructive pulmonary disease with (acute) lower respiratory infection; J85.0 Gangrene and necrosis of lung; D64.9 Anemia, unspecified; E86.1 Hypovolemia; Y92.230 Patient room in hospital as the place of occurrence of the external cause; F17.200 Nicotine dependence, unspecified, uncomplicated; Z20.822 Contact with and (suspected) exposure to COVID-19; T38.0X5A Adverse effect of glucocorticoids and synthetic analogues, initial encounter; F20.9 Schizophrenia, unspecified; F31.9 Bipolar disorder, unspecified; R09.81 Nasal congestion; F90.9 Attention-deficit hyperactivity disorder, unspecified type; Z59.00 Homelessness unspecified; Z88.9 Allergy status to unspecified drugs, medicaments and biological substances; Z23 Encounter for immunization; Z88.8 Allergy status to other drugs, medicaments and biological substances; Z79.899 Other long term (current) drug therapy; Z71.51 Drug abuse counseling and surveillance of drug abuser
CPT/HCPCS: 36415; 71045; 71046; 71250; 71260; 80048; 80053; 80202; 80305; 81003; 82550; 83036; 83605; 83735; 83880; 84100; 84443; 85007; 85025; 85610; 85730; 86703; 87040; 87070; 87081; 87635; 90732; 93005; 94640; 94760; 96365; 96375; 99285; C9803; G0378; J0696; J1644; J2543; J2920; J3370; J3490; J7030; J7512; Q9967

== ENCOUNTER 2021-03-13 18:00 | Inpatient (IN) | payer OTHER ==
[~2021-03-13] VITALS: Ht 170.2 cm; Wt 59.1 kg
[~2021-03-13 18:00] MED LIST: AZEL23SP BOTHNARES; FLUT1DIS15 INH; IPRA4AER IH
[2021-03-13] MEDS ORDERED: magnesium hydroxide 30ml (MOM) UD suspension PO PRN (20:30)
[2021-03-13] MEDS ORDERED: mag hydrox/Alum hydrox/simeth 30ml oral suspension PO PRN (20:30)
[2021-03-13] MEDS ORDERED: loperamide 2mg capsule PO PRN (20:30)
[2021-03-13] MEDS ORDERED: acetaminophen 325mg tablet PO PRN (20:30)
[2021-03-13] MEDS ORDERED: DOCU100C40 PO (20:51)
[2021-03-13] MEDS ORDERED: IPRA3AMP9 IH (20:51)
[2021-03-13] MEDS ORDERED: TEMA15CA PO (20:51)
[2021-03-13] MEDS ORDERED: PANT-47 PO (20:51)
[2021-03-13] MEDS ORDERED: FLUT16SP13 BOTHNARES (20:51)
[2021-03-13] MEDS ORDERED: LACT1CAP26 PO (20:51)
[2021-03-13] MEDS ORDERED: LEVO750T46 PO (20:51)
[2021-03-13] MEDS ORDERED: DIPH25CA83 PO (21:19)
[2021-03-13] MEDS ORDERED: ONDA4TAB12 PO (21:19)
[2021-03-13] MEDS ORDERED: HYDR-3972 PO (21:19)
[2021-03-13] MEDS ORDERED: LORazepam 1 MG tablet PO PRN (21:20)
[2021-03-13] MEDS ORDERED: ondansetron 4mg rapidly disintigrating tab PO PRN ×2 (21:35→21:40)
[2021-03-13] MEDS ORDERED: temazepam 15mg capsule PO PRN (21:40)
[2021-03-13] MEDS ORDERED: HYDROcodone/acetaminophen 10/325mg tab PO PRN ×2 (21:40)
[2021-03-13] MEDS ORDERED: diphenhydrAMINE 25mg capsule PO PRN (21:40)
[2021-03-13] MEDS: ipratropium/albuterol 3ml nebule NEB SCH (23:00)
[2021-03-14] MEDS ORDERED: ipratropium/albuterol 3ml nebule IH SCH
[2021-03-14] MEDS: ipratropium/albuterol 3ml nebule NEB SCH ×6 (03:04→23:07)
--- NOTE | 2021-03-14 04:48 | NUR ---
ADMIT NOTE: Patient admitted to [facility] from PCU where he was treated for pneumonia. He is unable to state a viable plan for food, clothing, or senior care. Patient is confused and disorganized in thought process with the belief that his parents took all his possessions and that he will go live on an empty parcel of land. He has been homeless and living on the streets. He has a history of meth and marijuana use instead of his medications.
[2021-03-14 08:00] VITALS: BP 114/75
[2021-03-14] MEDS ORDERED: docusate sod 100mg capsule PO SCH (08:00)
[2021-03-14] MEDS ORDERED: lactobacillus rhamnosus 10,000 MMU CELLS/CAPSULE PO SCH (08:00)
[2021-03-14] MEDS ORDERED: levoFLOXACIN 750MG TABLET PO SCH (08:00)
[2021-03-14] MEDS ORDERED: FLUTICASONE PROPIONATE BOTHNARES SCH (08:00)
[2021-03-14] MEDS ORDERED: pantoprazole 40mg Tablet.DR PO SCH (08:00)
[2021-03-14] MEDS: docusate sod 100mg capsule PO SCH ×2 (08:22→20:00)
[2021-03-14] MEDS: lactobacillus rhamnosus 10,000 MMU CELLS/CAPSULE PO SCH ×2 (08:22→20:28)
[2021-03-14] MEDS: fluticasone nasal spray 16GM bottle NS SCH (08:23)
[2021-03-14] MEDS: pantoprazole 40mg Tablet.DR PO SCH (08:23)
[2021-03-14 08:55] LABS: CHOL/HDL RATIO 2.4 (0.00-4.99); CHOLESTEROL 302 MG/DL (0-200); HDL CHOLESTEROL 126 MG/DL (35-60); LDL CHOLESTEROL 141 MG/DL (50-100); TRIGLYCERIDES 120 MG/DL (20-135)
[2021-03-14] MEDS: levoFLOXACIN 750MG TABLET PO SCH (11:18)
--- NOTE | 2021-03-14 13:23 | NUR ---
Pt. attended group today. Todays group was about the difference between Growth Mindset vs. Fixed Mindset. We learned about the differences and then discussed what aspect of developing a growth mindset they wanted to work on. Pt. engaged well in the group. He shared his thoughts easily and was interested in the topic. His thought content at times was on point and then would veer off into tangential and confusing thoughts. At times it was observed by this Clinician that he was talking and muttering to himself. His demeanor was calm, compliant and pleasant. He shared that he is letting of negative thoughts that hold him back and that he wants to hold onto hope. He is believing for better things for himself in the future and talked a lot about how his relationship with God is a source of strength, hope and help for him as he navigates his life. He was friendly and interactive with his peers in the group. Marline Singh LCSW
[2021-03-14] MEDS: clindamycin 150mg capsule PO SCH ×2 (14:13→20:28)
--- NOTE | 2021-03-14 17:09 | NUR ---
Nursing Progress Note: JOSEF Legal hold: 5150 Expires 03/16 @ 2110. Client on involuntary status for GD. Report received from CAROLINA Sandoval with use of SBAR. Why are they here: Patient was admitted to [facility] from PCU where he was treated for pneumonia. Pt is unable to state a viable plan for food, clothing, or mcfp. Patient is confused and disorganized in thought process with the belief that his parents took all his possessions and that he will go live on an empty parcel of land. Pt has been homeless and living on the streets. He has a history of methamphetamine and marijuana use and is not med compliant. Assessment What has happened this shift: Received patient sleeping at shift change, respirations even and unlabored. Pt was awoken for AM blood, pt tolerated well. Pt was compliant with his medications and 1:1 assessment, however states he is unable to drink water because it is contaminated. It has to be boiled. Pt declined a water bottle also stating It has to be boiled. Water from ice machines are still contaminated. Pt appeared to have dyspnea, but was not in distress. Respiratory was called for his past due breathing treatment. Lung sound clear/diminished. 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 When asked how pt came to [facility] pt began with a story about being a caregiver for his dad, there was family conflict. It was difficult to follow. Pt then said his social security and credit cards were taken by the [employer] service. The records were transferred to [place] then [facility]. 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 Pt was calm throughout the shift, attending both AM/PM group. Pt is pleasantly delusional. S/I, H/I: Pt denies. A/VH: Pt denies, but appears internally preoccupied at times. Sleep: 5.75 hours per sleep assessment. ADL's: Independent. Group attendance: Yes, both AM/PM Were meds taken: Yes, without issue. Any med S/E: None reported or observed. Mental Status Exam Appearance: Clean, neat. Long brown hair and shaggy teran. Dressed in green unit scrubs. Eye contact: Good Behavior: Cooperative, visible and participated in unit activities. Walks halls or in common areas watching T.V or intermittently talking to peers. Speech: Clear to mumble. Difficult to understand at times. Mood: Delusional Affect: Constricted. Thought process: Delusional, tangential Thought Content: Circumstantial Cognition: A&O x2. Insight: Poor Judgment: Poor Interventions PRN's used: None. Therapeutic interventions: Maintained a safe and therapeutic environment, provided clear simple instructions, monitored behavior and need for intervention, redirection and distraction as needed, Q15 min safety checks. Restraints/seclusion/emergency medication: N/A Justification of Continued Inpatient Treatment: Patient is GD and presents with psychotic symptoms. Pt unable to formulate a plan for food, mcfp or clothing. Pt requires crisis interruption and stabilization in safe therapeutic milieu. Addendum: 03/14/21 at 1720 by Umm Aguayo RN Dr. Huntley was hospitalist communication specialist and had been following pt on PCU. Received a verbal order that pt is on Clindamycin 300mg q6h for 4 weeks. Pt's sputum culture growing gram+ cocci in cluster.
--- NOTE | 2021-03-14 17:23 | NUR ---
Group Art Tx continued: Patient was able to participate, however seemed distracted, possibly by internal stimuli and at times paranoid content. Patient did remain in the group and was able to share his work,after prompting. Patient also expressed distress about having the television/video on, which was playing relaxing music with yaneth imagery. The television/stimuli was turned off and the patient appeared move relaxed and able to focus on the project/topic. *Please refer to the [facility] for entire overview of group and case notes. Mi Hoyos MA, BLENDING MACHINE FEEDER #[id number] [facility], Art Therapist Addendum: 03/14/21 at 1726 by Mi Hoyos SS Amended: Links added.
[2021-03-14 19:48] VITALS: BP 117/53
--- NOTE | 2021-03-15 01:42 | NUR ---
Nursing Progress Note: JOSEF Legal hold: 5150 Expires 03/16 @ 2110. Client on involuntary status for GD. Report received from CAROLINA Sandoval with use of SBAR. Why are they here: Patient was admitted to [facility] from U where he was treated for pneumonia. Pt is unable to state a viable plan for food, clothing, or [place]. Patient is confused and disorganized in thought process with the belief that his parents took all his possessions and that he will go live on an empty parcel of land. Pt has been homeless and living on the streets. He has a history of methamphetamine and marijuana use and is not med compliant. Assessment What has happened this shift: Pt was walking in the hallway at change of shift but mostly isolates to his room. Pt is requesting to have juice or milk that is pasteurized. Pt states his water must be boiled because he is afraid it has covid in it. Pt states "I cant get infections because I had pneumonia." Pt was given juice. Pt had snacks, took HS meds and went to bed. Pt woke in the middle of the night asking for packaged snacks or a sandwich. S/I, H/I: Pt denies A/VH: Pt denies, but appears internally preoccupied at times. Sleep: see sleep hours ADL's: Independent. Group attendance: no evening groups Were meds taken: Yes, without issue. Any med S/E: None reported or observed. Mental Status Exam Appearance: Clean, neat. Long brown hair and shaggy teran. Dressed in green unit scrubs. Eye contact: Good Behavior: Cooperative, visible and participated in unit activities. Walks halls or in common areas watching T.V or intermittently talking to peers. Speech: Clear to mumble. Difficult to understand at times. Mood: Delusional Affect: Constricted. Thought process: Delusional, tangential Thought Content: Circumstantial Cognition: A&O x2. Insight: Poor Judgment: Poor Interventions PRN's used: None. Therapeutic interventions: Maintained a safe and therapeutic environment, provided clear simple instructions, monitored behavior and need for intervention, redirection and distraction as needed, Q15 min safety checks. Restraints/seclusion/emergency medication: N/A Justification of Continued Inpatient Treatment: Patient is GD and presents with psychotic symptoms. Pt unable to formulate a plan for food, [place] or clothing. Pt requires crisis interruption and stabilization in safe therapeutic milieu.
[2021-03-15] MEDS: clindamycin 150mg capsule PO SCH ×4 (02:00→20:12)
[2021-03-15] MEDS: ipratropium/albuterol 3ml nebule NEB SCH ×6 (03:12→22:43)
[2021-03-15] MEDS: fluticasone nasal spray 16GM bottle NS SCH (07:50)
[2021-03-15] MEDS: lactobacillus rhamnosus 10,000 MMU CELLS/CAPSULE PO SCH ×2 (07:50→20:11)
[2021-03-15] MEDS: pantoprazole 40mg Tablet.DR PO SCH (07:51)
[2021-03-15] MEDS: docusate sod 100mg capsule PO SCH ×2 (07:51→20:00)
[2021-03-15 07:55] VITALS: BP 126/86
[2021-03-15] MEDS: levoFLOXACIN 750MG TABLET PO SCH (11:14)
--- NOTE | 2021-03-15 12:10 | NUR ---
Met with Tristen to complete psychosocial assessment. Tristen is a 50 y/o male who was placed on 5150 for grave disability once he was medically cleared from the medical floor. He was admitted to the medical floor due to pneumonia on 03/02/21. He presented with rapid pressured speech, hyper-verbal, disorganized thoughts, paranoid and grandiose delusions regarding his history. He stated, "I'm here on official business...I asked to come here...the icomply is going to give me property and a house...the [employer] said they want me to have Adderall or Vyvanse or they will prosecute". He was fixated on getting Vyvanse or Adderall and reported these medications "help me calm down, focus on output of work". He presented as paranoid about the staff and asked typewriter operator automatic several times, "are you a Communist?". He reported he has been on SSDI for the last 20 years and that he was diagnosed with Bipolar which he does not believe is an accurate diagnosis. He reported he can stay in a hotel upon discharge and that he has over $2000 in his bank account.Tristen is a poor historian and it was difficult to obtain back ground information. MSE: A/O: oriented x's 4 Appearance: thin male, long hair and teran, clean Behavior: observed to pace throughout the day Speech: rapid, difficult to understand at time, hyper-verbal Mood: elevated Affect: congruent to mood Thought Process: circumstantial Thought Content: paranoid, grandiose, focused on getting Vyvanse or Adderall PLAN:Dieing Out Machine Operator will assist with discharge planning once he is closer to discharge. CANDY Angel Addendum: 03/15/21 at 1214 by Debra Rubio Amended: Links added.
--- NOTE | 2021-03-15 13:31 | NUR ---
Pt. attended group today. The topic today was identifying the triggers, signs and symptoms of an upcoming episode/event so that Pts. can learn to apply coping skills before they get to a bad place with their symptoms. Pt. engaged in the group today well, he did tend to need redirection at times as he would dominate the discussion. He was amenable to the redirection. He would share information that was relatable to the topic about himself and then at times would say things that were hard to follow. There were paranoid thought processed observed "the govt. is keeping tabs on him" and it was observed by this Nurse Monitoring that he was relating to internal stimuli and at time muttering out loud. His demeanor was calm and compliant. He was able to share his warning signs and triggers in a way that we could all understand and relate to. His mood appeared to be good and positive. He shared how his relationship with God has been the thing that has gotten him through his mental health issues. He shared that God is his main support. We discussed the possibility of letting himself create a support system, he was very hesitant about this and this is where his paranoid thoughts were observed. He has a hard trusting anyone. Marline Singh LCSW
--- NOTE | 2021-03-15 16:56 | NUR ---
Nursing Progress Note: JOSEF Legal hold: 5150 Expires 03/16 @ 2110. Client on involuntary status for GD. Report received from CAROLINA Sandoval with use of SBAR. Why are they here: Patient was admitted to [facility] from U where he was treated for pneumonia. Pt is unable to state a viable plan for food, clothing, or half-way. Patient is confused and disorganized in thought process with the belief that his parents took all his possessions and that he will go live on an empty parcel of land. Pt has been homeless and living on the streets. He has a history of methamphetamine and marijuana use and is not med compliant. Assessment What has happened this shift: Received patient awake in his room at shift change, no distress noted. Pt woke for his breathing treatment and remained up the rest of shift. Pt presents as irritated r/t being asked to take psyche medications. Pt feels he doesnt need them. Pt states that doctor wants me to take Invega, I guess I will take it. I will do anything to get out of here. He says I have schizoaffective and I dont live in reality. I live in reality. The [employer] gave me the diagnosis of ADHD. I guess I will have to go to another hospital to get my ADHD medication. Pt continues to be delusional. Pt is compliant with medications he is taking states that lung abscess isnt that bad. Pt attended both AM/PM group and attended outside patio time this afternoon. S/I, H/I: Pt denies both. A/VH: Pt denies, but appears internally preoccupied at times, muttering to himself. Sleep: 5.5 hours per sleep assessment. No naps today. ADL's: Independent. Requires q4hr breathing treatments. Group attendance: Yes, both AM/PM Were meds taken: Yes, without issue. Any med S/E: None reported or observed. Mental Status Exam Appearance: Clean, neat. Long brown hair and shaggy teran. Dressed in green unit scrubs. Eye contact: Good Behavior: Cooperative, visible and participated in unit activities. Walks halls or in common areas watching T.V or intermittently talking to peers. Speech: Clear to mumble. Difficult to understand at times. Mood: Delusional Affect: Constricted. Thought process: Delusional, tangential Thought Content: Circumstantial Cognition: A&O x2. Insight: Poor Judgment: Poor Interventions PRN's used: None. Therapeutic interventions: Maintained a safe and therapeutic environment, provided clear simple instructions, monitored behavior and need for intervention, redirection and distraction as needed, Q15 min safety checks. Restraints/seclusion/emergency medication: N/A Justification of Continued Inpatient Treatment: Patient is GD and presents with psychotic symptoms. Pt unable to formulate a plan for food, half-way or clothing. Pt requires crisis interruption and stabilization in safe therapeutic milieu.
[2021-03-15 19:35] VITALS: BP 109/78
[2021-03-15] MEDS: PALIPERIDONE 3 MG TAB.ER.24 PO SCH (20:12)
--- NOTE | 2021-03-15 23:04 | NUR ---
Nursing Progress Note: JOSEF Legal hold: 5150 Expires 03/16 @ 2110. Client on involuntary status for GD. Report received from CAROLINA Reyes with use of SBAR. Why are they here: Patient was admitted to [facility] from U where he was treated for pneumonia. Pt is unable to state a viable plan for food, clothing, or residential. Patient is confused and disorganized in thought process with the belief that his parents took all his possessions and that he will go live on an empty parcel of land. Pt has been homeless and living on the streets. He has a history of methamphetamine and marijuana use and is not med compliant. Assessment What has happened this shift: Pt is smiling and walking in the halls at change of shift. Pt states "oh yeah, I'm A LOT better today!" Pt spent time between his room, and common areas. Pt appears to be RIS, seems to be talking to himself at times. Pt asked about his meds at HS and stated "Ya invega, ok i'll do it!" Pt wants to make sure he isnt taking anything for sleep. S/I, H/I: Pt denies both. A/VH: Pt denies but RIS Sleep: see sleep hours ADL's: Independent. Requires q4hr breathing treatments. Group attendance: no evening groups Were meds taken: Yes Any med S/E: None reported or observed. Mental Status Exam Appearance: Clean, neat. Long brown hair and shaggy teran. Dressed in green unit scrubs. Eye contact: Good Behavior: Cooperative, visible and participated in unit activities. Walks halls or in common areas watching T.V or intermittently talking to peers. Speech: Clear to mumble. Difficult to understand at times. Mood: Delusional Affect: Constricted. Thought process: Disorganized Thought Content: concerned with getting out of here, and medications Cognition: A&O x2. Insight: Poor Judgment: Poor Interventions PRN's used: None. Therapeutic interventions: Maintained a safe and therapeutic environment, provided clear simple instructions, monitored behavior and need for intervention, redirection and distraction as needed, Q15 min safety checks. Restraints/seclusion/emergency medication: N/A Justification of Continued Inpatient Treatment: Patient is GD and presents with psychotic symptoms. Pt unable to formulate a plan for food, residential or clothing. Pt requires crisis interruption and stabilization in safe therapeutic milieu.
[2021-03-16] MEDS: clindamycin 150mg capsule PO SCH ×4 (02:30→20:05)
[2021-03-16] MEDS: ipratropium/albuterol 3ml nebule NEB SCH ×6 (02:49→23:18)
[2021-03-16 07:28] VITALS: BP 111/58
[2021-03-16] MEDS: docusate sod 100mg capsule PO SCH ×2 (08:00→20:05)
[2021-03-16] MEDS: lactobacillus rhamnosus 10,000 MMU CELLS/CAPSULE PO SCH ×2 (08:01→20:05)
[2021-03-16] MEDS: pantoprazole 40mg Tablet.DR PO SCH (08:01)
[2021-03-16] MEDS: acetaminophen 325mg tablet PO PRN (08:02)
[2021-03-16] MEDS: fluticasone nasal spray 16GM bottle NS SCH (08:02)
[2021-03-16] MEDS: levoFLOXACIN 750MG TABLET PO SCH (11:01)
--- NOTE | 2021-03-16 13:56 | NUR ---
Pt. attended group today. Today we talked about how to Self-Nurture ourselves. They had to identify what places, people and situations they found nurturing. Pt.engaged in the group well. He engaged in discussion and in the written portion/activity. He appeared to be in a good mood with a restricted affect. His thought content and thought process appeared to be WNL. His demeanor was calm and compliant. He shared that he found being outside nurturing and music. He listened to his peers well, he did become a bit ruffled when one of his peers in the group talked about some things that he didn't agree with. He tends to fixate on certain things and struggles to be redirected when this occurs. At times when he is talking it is difficult to follow his thoughts and he can talk fast and low. Marline Singh LCSW
--- NOTE | 2021-03-16 14:54 | NUR ---
Nursing Progress Note: Legal hold: 5150 Expires 03/16 @ 2110. Client on involuntary status for GD. Report received from CAROLINA Sandoval with use of SBAR. Why are they here: Patient was admitted to [facility] where he was treated for pneumonia. Pt is unable to state a viable plan for food, clothing, or custodial. Patient is confused and disorganized in thought process with the belief that his parents took all his possessions and that he will go live on an empty parcel of land. Pt has been homeless and living on the streets. He has a history of methamphetamine and marijuana use and is not med compliant. Assessment What has happened this shift: Pt was up before breakfast. Pt was cooperative with all scheduled morning medications but Colace which he stated he didn't need. Pt c/o 4/10 chest/lung area pain which he describes as a sharp pain upon inhalation that he states his getting better. "That's the sickest I've ever been in my life." Pt was given PRN Tylenol 650 mg at 0802 with good effect. Pt receives routine nebulizer treatments. Pt continues on PO ABX Clindamycin and Levaquin with no adverse reactions noted. When asked pt about AH/voices, he replied, "never." Pt states, "I'm ADHD." Pt speaks softly and mumbles at times, he can be difficult to understand. Pt has been pleasant and cooperative with care. Pt attended group. Pt did c/o feeling "sleepy" today. S/I, H/I: Pt denies. A/VH: Pt denies. Sleep: Pt slept 7 hours last night per noc shift report. ADLs: Independent Group attendance: Yes Were meds taken: Yes, all but Colace. Any med S/E: Pt reported feeling sleepy. Mental Status Exam Appearance: Clean, neat man with long brown hair and shaggy teran. Dressed in green unit scrubs. Eye contact: Good Behavior: Pleasant, cooperative, participates in unit activities and attends group. Speech: Soft spoken and mumbles at times. Mood: Good Affect: Appropriate Thought process: Mildly disorganized, no delusional statements made to this RN today. Thought Content: He's ADHD. Cognition: A/O X 3 Insight: Fair Judgment: Fair Interventions PRN's used: None. Therapeutic interventions: 1:1 assessment, establishment of rapport, therapeutic communication, active listening, maintained a safe and therapeutic environment, provided clear and simple instructions, encouragement to attend groups, medication administration/education/monitoring, behavior monitoring and intervention as needed; distraction, redirection, positive reinforcement, Q15 minute safety checks. Restraints/seclusion/emergency medication: N/A Justification of Continued Inpatient Treatment: Patient is GD and presents with psychotic symptoms. Pt unable to formulate a plan for food, custodial or clothing. Pt requires crisis interruption and stabilization in safe therapeutic milieu.
--- NOTE | 2021-03-16 17:28 | NUR ---
Group Art Tx continued: Patient wandered into the group and session several times, however, did not remain to participate. He remained appropriate, quiet and aware that a group was in session. Patient remained in his own 'internal space'. When spoken to, Pt. was responsive, however, it remained difficult to fully understand his thought & mood content as the patient was talking in a soft voice, having rapid thoughts and pressured speech. *Please refer to the [facility] Case Notes for entire overview. Mi Hoyos MA, BOOK REPAIRER #[id number] [facility], Art Therapist Addendum: 03/16/21 at 1731 by Mi GOINS Amended: Links added.
[2021-03-16 19:00] VITALS: BP 117/78
[2021-03-16] MEDS: PALIPERIDONE 3 MG TAB.ER.24 PO SCH (20:05)
--- NOTE | 2021-03-17 01:33 | NUR ---
Nursing Progress Note: [facility] Legal hold: 5150 Expires 03/16 @ 2110. Client on involuntary status for GD. Report received from CAROLINA Cosme with use of SBAR. Why are they here: Patient was admitted to [facility] from [facility] where he was treated for pneumonia. Pt is unable to state a viable plan for food, clothing, or half-way. Patient is confused and disorganized in thought process with the belief that his parents took all his possessions and that he will go live on an empty parcel of land. Pt has been homeless and living on the streets. He has a history of methamphetamine and marijuana use and is not med compliant. Assessment What has happened this shift: Pt was sitting up in bed reading at change of shift. Pt friendly, calm and cooperative with care. Pt is a little difficult to understand as he mumbles at times. States he has ADHD and denies all other MH symptoms. Pt up for HS snacks and took all HS medication except for the Colace. S/I, H/I: Pt denies. A/VH: Pt denies. Sleep: ADLs: Independent Group attendance: Yes Were meds taken: Yes, all but Colace. Any med S/E: none Mental Status Exam Appearance: Clean, neat man with long brown hair and shaggy teran. Dressed in green unit scrubs. Eye contact: Good Behavior: Pleasant, cooperative Speech: Soft spoken and mumbles at times. Mood: Good Affect: Appropriate Thought process: Mildly disorganized Thought Content: He's ADHD. Cognition: A/O X 3 Insight: Fair Judgment: Fair Interventions PRN's used: None. Therapeutic interventions: 1:1 assessment, establishment of rapport, therapeutic communication, active listening, maintained a safe and therapeutic environment, provided clear and simple instructions, encouragement to attend groups, medication administration/education/monitoring, behavior monitoring and intervention as needed; distraction, redirection, positive reinforcement, Q15 minute safety checks. Restraints/seclusion/emergency medication: N/A Justification of Continued Inpatient Treatment: Patient is GD and presents with psychotic symptoms. Pt unable to formulate a plan for food, half-way or clothing. Pt requires crisis interruption and stabilization in safe therapeutic milieu.
[2021-03-17] MEDS: clindamycin 150mg capsule PO SCH ×4 (02:51→20:27)
[2021-03-17] MEDS: ipratropium/albuterol 3ml nebule NEB SCH ×6 (03:12→23:03)
[2021-03-17 07:27] VITALS: BP 102/69
[2021-03-17] MEDS: fluticasone nasal spray 16GM bottle NS SCH (07:48)
[2021-03-17] MEDS: docusate sod 100mg capsule PO SCH ×3 (07:48→20:00)
[2021-03-17] MEDS: lactobacillus rhamnosus 10,000 MMU CELLS/CAPSULE PO SCH ×2 (07:48→20:27)
[2021-03-17] MEDS: pantoprazole 40mg Tablet.DR PO SCH (07:48)
--- NOTE | 2021-03-17 11:11 | NUR ---
Initial: Pt admit for psychosis. Currently on a regular diet and eating well with mostly 100% PO intake. Pt receiving double protein TID as of 03/14 per diet order. LBM 03/16, with routine bowel care available though pt refusing at times per EMR. No documented edema or wounds. No nutrition diagnosis at this time. Will continue to follow. Recommendations: 1) Consider diet change to low CHOL given elevated CHOL on admit 2) Double eggs WB, double meat BIDLD per diet order 3) Routine bowel care 4) Weekly scaled weights Addendum: 03/17/21 at [address] Amended: Links added.
[2021-03-17] MEDS: levoFLOXACIN 750MG TABLET PO SCH (12:07)
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
[2021-03-17 20:00] VITALS: BP 117/76
[2021-03-17] MEDS: PALIPERIDONE 3 MG TAB.ER.24 PO SCH (20:27)
--- NOTE | 2021-03-18 01:26 | NUR ---
Nursing Progress Note: [facility] Legal hold: 5250 Client on involuntary status for GD. Report received from Barbara FIGUEROA with use of SBAR. Why they are here: Patient was admitted to [facility] from [facility] where he was treated for pneumonia. Pt is unable to state a viable plan for food, clothing, or longterm. Patient is confused and disorganized in thought process with the belief that his parents took all his possessions and that he will go live on an empty parcel of land. Pt has been homeless and living on the streets. He has a history of methamphetamine and marijuana use and is not med compliant. Assessment What has happened this shift: Patient sitting in the community room reading quietly. Pt calm and cooperative with care. Pt denies MH symptoms and has no complaints. Continues on PO ABX for lung abscess with no ASE noted. Continues on breathing treatments as ordered. S/I, H/I: Denies. A/VH: Denies. Sleep: ADLs: Independent Group attendance: Yes Were meds taken: Yes, all but Colace. Any med S/E: None noted or reported Mental Status Exam Appearance: Man with long brown hair and shaggy teran. Dressed in green unit scrubs. Eye contact: Good Behavior: Pleasant, cooperative, social Speech: Clear, mumbles at times. Mood: Fine Affect: Congruent with mood. Thought process: Mildly disorganized, delusional, tangential Thought Content: Wants to discharge and believes he does not need to be here. Cognition: A/O X 3, to self, time and place Insight: Poor Judgment: Fair Interventions PRN's used: None. Therapeutic interventions: 1:1 assessment, establishment of rapport, therapeutic communication, active listening, maintained a safe and therapeutic environment, provided clear and simple instructions, encouragement to attend groups, medication administration/education/monitoring, behavior monitoring and intervention as needed; distraction, redirection, positive reinforcement, Q15 minute safety checks. Restraints/seclusion/emergency medication: N/A Justification of Continued Inpatient Treatment: Patient is GD and presents with psychotic symptoms. Pt unable to formulate a plan for food, longterm or clothing. Pt requires crisis interruption and stabilization in safe therapeutic milieu.
[2021-03-18] MEDS: clindamycin 150mg capsule PO SCH ×4 (02:10→19:58)
[2021-03-18] MEDS: ipratropium/albuterol 3ml nebule NEB SCH ×6 (03:10→23:08)
[2021-03-18 07:16] VITALS: BP 119/77
[2021-03-18] MEDS: lactobacillus rhamnosus 10,000 MMU CELLS/CAPSULE PO SCH ×2 (07:37→19:57)
[2021-03-18] MEDS: pantoprazole 40mg Tablet.DR PO SCH (07:37)
[2021-03-18] MEDS: docusate sod 100mg capsule PO SCH ×4 (07:37→20:00)
[2021-03-18] MEDS: acetaminophen 325mg tablet PO PRN (07:38)
[2021-03-18] MEDS: fluticasone nasal spray 16GM bottle NS SCH (07:47)
[2021-03-18] MEDS: levoFLOXACIN 750MG TABLET PO SCH (11:38)
--- NOTE | 2021-03-18 14:45 | NUR ---
Nursing Progress Note: Legal hold: 5250 Client on involuntary status for GD. Report received from Eric YOUNGBLOOD with use of SBAR. Why are they here: Patient was admitted to [facility] from [facility] where he was treated for pneumonia. Pt is unable to state a viable plan for food, clothing, or care home. Patient is confused and disorganized in thought process with the belief that his parents took all his possessions and that he will go live on an empty parcel of land. Pt has been homeless and living on the streets. He has a history of methamphetamine and marijuana use and is not med compliant. Assessment What has happened this shift: Pt was up for breakfast. Pt was cooperative with scheduled medications. Pt reported he feels "tired." Pt is guarded. Pt is delusional. Asked pt what brought him to [place]. He replied, "the [employer] told me to come here...I might go to [place] in the Spring." Pt states he was in the [employer] for 5 years. Pt plans to get a hotel room when he leaves here. Pt was given Tylenol 650 mg at 0738 for c/o 4/10 chest area/lung sharp pain upon inspiration with good effect. Pt refused his Colace this morning stating he doesn't need it. Pt's Paliperidone was increased to 6 mg HS. S/I, H/I: Pt denies. A/VH: Pt denies. Sleep: Pt slept 5 hours last night per noc shift report. ADLs: Independent Group attendance: N/A Were meds taken: Yes, all but Colace. Any med S/E: Pt reported feeling tired. Mental Status Exam Appearance: Clean, neat man with long brown hair and shaggy teran. Dressed in green unit scrubs. Eye contact: Good Behavior: Cooperative, paces in the hallway, reads the Bible. Speech: Soft spoken, mumbles. Mood: "Tired" Affect: Guarded Thought process: Delusional Thought Content: He might go to [place] in the spring. Cognition: A/O X 3 Insight: Fair Judgment: Fair Interventions PRN's used: Tylenol Therapeutic interventions: 1:1 assessment, establishment of rapport, therapeutic communication, active listening, maintained a safe and therapeutic environment, provided clear and simple instructions, encouragement to attend groups, medication administration/education/monitoring, behavior monitoring and intervention as needed; distraction, redirection, positive reinforcement, Q15 minute safety checks. Restraints/seclusion/emergency medication: N/A Justification of Continued Inpatient Treatment: Patient is GD and presents with psychotic symptoms. Pt unable to formulate a plan for food, care home or clothing. Pt requires crisis interruption and stabilization in safe therapeutic milieu.
[2021-03-18 19:34] VITALS: BP 116/77
[2021-03-18] MEDS: PALIPERIDONE 3 MG TAB.ER.24 PO SCH (19:58)
--- NOTE | 2021-03-18 23:21 | NUR ---
Nursing Progress Note Legal hold: 5250 for gravely disabled Report received from Ba YOUNGBLOOD Why are they here: Patient was admitted to [facility] from [facility] where he was treated for pneumonia. Pt is unable to state a viable plan for food, clothing, or longterm. Patient is confused and disorganized in thought process with the belief that his parents took all his possessions and that he will go live on an empty parcel of land. Pt has been homeless and living on the streets. He has a history of methamphetamine and marijuana use and is not med compliant. Assessment What has happened this shift: The patient was up on the unit and in the general patient areas. He was friendly and cooperative with the evening assessment. He reports that he has been sleeping well and that his appetite was good. When asked about medication side effects he reported feeling fatigued. He appeared clean with his long hair and teran neatly combed and was wearing green hospital scrubs. He denied feeling depressed or anxious. He denied auditory or visual hallucinations. When asked what his discharge plan would be he stated that he was going to be given a parcel of land from the [employer] but did not want that but in his chart. When asked if he believed he had a mental illness he stated that he has ADHD and needed medications for that. S/I, H/I: Patient denies A/VH: Denies Sleep: Reports he has been sleeping well ADL's: Independent Group attendance: No groups this shift Were meds taken: yes Any med S/E see above note Mental Status Exam Appearance: See above note Eye contact: WNL Behavior: No behavior problems noted. Minimal socialization with others Speech: Slightly rapid at times. Mood: See above note Affect: Appropriate Thought process: Linear and replies match what is asked Thought Content: Delusional thoughts related to receiving land from the [employer] Cognition: alert and oriented Insight: poor Judgment: poor Justification of Continued Inpatient Treatment: The patient continues to unable to formulate a plan for self care 2nd delusional belief about receiving land from the [employer].
[2021-03-19] MEDS: clindamycin 150mg capsule PO SCH ×4 (01:31→20:29)
[2021-03-19] MEDS: ipratropium/albuterol 3ml nebule NEB SCH ×6 (03:09→23:04)
[2021-03-19] MEDS: docusate sod 100mg capsule PO SCH ×2 (08:00→20:00)
[2021-03-19 08:12] VITALS: BP 111/78
[2021-03-19] MEDS: lactobacillus rhamnosus 10,000 MMU CELLS/CAPSULE PO SCH ×2 (08:41→20:28)
[2021-03-19] MEDS: pantoprazole 40mg Tablet.DR PO SCH (08:41)
[2021-03-19] MEDS: fluticasone nasal spray 16GM bottle NS SCH (08:42)
[2021-03-19] MEDS: levoFLOXACIN 750MG TABLET PO SCH (11:36)
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
--- NOTE | 2021-03-19 15:26 | NUR ---
DISREGARD PROGRESS NOTE BELOW ..WRONG PATIENT.
--- NOTE | 2021-03-19 15:29 | NUR ---
Nursing Progress Note: [facility] Legal hold: 5250 Expires 03/30 Client on involuntary status for GD. Report received from CAROLINA Reyes with use of SBAR. Why are they here: Patient was admitted to [facility] from [facility] where he was treated for pneumonia. Pt is unable to state a viable plan for food, clothing, or mcfp. Patient is confused and disorganized in thought process with the belief that his parents took all his possessions and that he will go live on an empty parcel of land. Pt has been homeless and living on the streets. He has a history of methamphetamine and marijuana use and is not med compliant. Assessment What has happened this shift: Received patient awake in his room at shift change. Pt is pleasant upon greeting. Pt was compliant with medication and care. When asked about A/VH pt states I have my own thoughts in my head, my conscience I guess. Pt states he has a hearing tomorrow, when asked about food mcfp and clothing pt stated he had varies amounts of money in his bank account. Pt states he is going to get a motel when he leaves here or maybe I will leave the state, got to [place]. A warmer climate without snow. Pt reported itchy rash on bilateral inner thighs. Pt declined Colace stating he has three bowel movements a day. Pt reports this is the first day I can take a deep breath and it doesnt hurt. Nystatin powder applied to inner thigh rash with effect. S/I, H/I: Pt denies both. A/VH: Pt denies both. Sleep: 5.0 hours per sleep assessment. No naps today. ADLs: Independent. Pt showered today. Group attendance: No scheduled group today. Were meds taken: Yes, all but Colace. Any med S/E: None reported or observed. Mental Status Exam Appearance: Clean, neat man with long brown hair and shaggy teran. Dressed in green unit scrubs. Eye contact: Good Behavior: Cooperative a little guarded, paces halls or sits in room reading Bible. Speech: Soft spoken, mumbles. A little pressured. Mood: Euthymic Affect: Constricted with brightening. Thought process: Circumstantial Thought Content: Rash between thighs. Cognition: A/O X 3 Insight: Fair Judgment: Fair Interventions PRN's used: Tylenol Therapeutic interventions: 1:1 assessment, establishment of rapport, therapeutic communication, active listening, maintained a safe and therapeutic environment, provided clear and simple instructions, medication administration/education/monitoring, behavior monitoring and intervention as needed; Q15 minute safety checks. Restraints/seclusion/emergency medication: N/A Justification of Continued Inpatient Treatment: Patient is GD and presents with psychotic symptoms. Pt unable to formulate a plan for food, mcfp or clothing. Pt requires crisis interruption and stabilization in safe therapeutic milieu.
[2021-03-19 19:43] VITALS: BP 123/81
[2021-03-19] MEDS: PALIPERIDONE 3 MG TAB.ER.24 PO SCH (20:29)
[2021-03-19] MEDS: nystatin 15 GM powder TP SCH (20:33)
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
[2021-03-20] MEDS: clindamycin 150mg capsule PO SCH ×4 (02:00→20:02)
[2021-03-20] MEDS: ipratropium/albuterol 3ml nebule NEB SCH ×6 (03:10→23:06)
[2021-03-20] MEDS: nystatin 15 GM powder TP SCH ×2 (07:14→20:36)
[2021-03-20] MEDS: lactobacillus rhamnosus 10,000 MMU CELLS/CAPSULE PO SCH ×2 (07:15→20:02)
[2021-03-20] MEDS: docusate sod 100mg capsule PO SCH ×3 (07:15→20:00)
[2021-03-20] MEDS: pantoprazole 40mg Tablet.DR PO SCH (07:15)
[2021-03-20] MEDS: fluticasone nasal spray 16GM bottle NS SCH (07:15)
[2021-03-20 07:44] VITALS: BP 109/75
[2021-03-20 08:23] LABS: BASOPHILS # (AUTO) 0.1 X10'3 (0-0.2); BASOPHILS % (AUTO) 1.1 % (0-1); EOSINOPHILS # (AUTO) 0.2 X10'3 (0-0.9); HEMATOCRIT 33.2 % (42.0-52.0); HEMOGLOBIN 11.5 g/dl (14.0-17.9); LYMPHOCYTES # (AUTO) 1.4 X10'3 (1.1-4.8); LYMPHOCYTES % (AUTO) 14.9 % (21-51); MEAN CORPUSCULAR HEMOGLOBIN 32.4 PG (27.0-31.0); MEAN CORPUSCULAR HGB CONC 34.5 g/dL (33.0-36.5); MEAN CORPUSCULAR VOLUME 93.9 FL (78-98); MEAN PLATELET VOLUME 6.4 FL (7.4-10.4); MONOCYTES # (AUTO) 0.5 X10'3 (0-0.9); MONOCYTES % (AUTO) 5.7 % (2-12); NEUTROPHILS # (AUTO) 7.1 X10'3 (1.8-7.7); NEUTROPHILS % (AUTO) 76.3 % (42-75); PLATELET COUNT 259 X10'3 (140-440); RED BLOOD COUNT 3.53 X10'6 (4.70-6.10); RED CELL DISTRIBUTION WIDTH 16.2 % (11.5-14.5); WHITE BLOOD COUNT 9.4 X10'3 (4.5-11.0)
[2021-03-20 08:59] LABS: ALANINE AMINOTRANSFERASE 30 U/L (12-78); ALBUMIN 2.8 G/DL (3.4-5.0); ALBUMIN/GLOBULIN RATIO 0.6 (1.1-1.5); ALKALINE PHOSPHATASE 79 IU/L (46-116); ANION GAP 10 (8-16); ASPARTATE AMINO TRANSFERASE 16 U/L (10-37); BILIRUBIN,TOTAL 0.3 MG/DL (0.1-1.0); BLOOD UREA NITROGEN 24 MG/DL (7-18); BUN/CREATININE RATIO 25.5 (5.4-32.0); CALCIUM 8.9 MG/DL (8.5-10.1); CHLORIDE 107 MMOL/L (99-107); CREATININE 0.94 MG/DL (0.60-1.10); GLUCOSE 86 MG/DL (70-104); POTASSIUM 4.3 MMOL/L (3.5-5.1); SODIUM 144 MMOL/L (135-145); TOTAL CARBON DIOXIDE 27.4 MMOL/L (24-32); TOTAL PROTEIN 7.5 G/DL (6.4-8.2); eGFR 84 ML/MIN
[2021-03-20 10:20] LABS: HEMOGLOBIN A1C 5.4 % (4.5-6.2)
[2021-03-20] MEDS: levoFLOXACIN 750MG TABLET PO SCH (12:40)
--- NOTE | 2021-03-20 13:29 | NUR ---
PROBABLE CAUSE HEARING Patients Name: Nathan Champion Admission Date: 03/13/2021 Date of 5150: 03/13/2021 Written by: [facility] Criteria: GD Summary of Facts: Nathan is confused, disorganized in thought process, delusional belief associated with , ANGELINA themes, unable to verbalize a viable plan for f/c/s [facility] Neg Date of 525: 03/16/21 Written by: Luis Antonio Criteria: GD Summary of Facts: This patient was admitted to this unit for psychosis and inability to care for himself. He continues to have underlying psychotic symptoms and does not have a viable plan. Risk factors include his recent medical issue Diagnosis: Psychotic d/o NOS Behavior during past 48 HRS: Pt was admitted from another part of the hospital for pneumonia. Continues to have paranoia with the themes of the telling him to do things, the NSA knocking down his door because of a federal investigation but does not give more details. Says the secret service told him that there is a spy in this hospital but he doesnt know who it is. Says the keeps track of him and looks in on him at least once a day through cameras FOOD: 100% SLEEPIN ADLS: ind MCC: homeless MEDICATION DOSAGE FREQUENCY DURATION Invega 6 mg po q hs
--- NOTE | 2021-03-20 13:43 | NUR ---
Nursing Progress Note: Legal hold: 5250 Client on involuntary status for GD. Report received from Eric YOUNGBLOOD with use of SBAR. Why are they here: Patient was admitted to [facility] from [facility] where he was treated for pneumonia. Pt is unable to state a viable plan for food, clothing, or senior care. Patient is confused and disorganized in thought process with the belief that his parents took all his possessions and that he will go live on an empty parcel of land. Pt has been homeless and living on the streets. He has a history of methamphetamine and marijuana use and is not med compliant. Assessment What has happened this shift: Pt observed sleeping at the start of the shift. He was woke for medication administration and breakfast. Pt is compliant and cooperative with both. Pt diid not want his Colace today stating he had three BM's yesterday and two already today. Pt isolated to his room after meals but did get up and pace the halls briefly prior to lunch. Pt showered today and got nicely dressed for court today. He became anxious because of court. And began pacing and shaking his head and rubbing his scalp. S/I, H/I: Pt denies. A/VH: Pt denies. Sleep: Rest; did not sleep ADLs: Independent Group attendance: N/A Were meds taken: Yes, all but Colace. Any med S/E: None noted or reported Mental Status Exam Appearance: Middle aged man with long brown hair and unkempt teran. Dressed in green unit scrubs. Eye contact: Good Behavior: Guarded, paces, reads the Bible. Speech: Soft spoken, mumbles, pressured Mood: "okay" Affect: Guarded Thought process: Delusional, Disorganized Thought Content: Going to [place] Cognition: A/O X 3 Insight: Fair Judgment: Fair Interventions PRN's used: N/A Therapeutic interventions: Provided 1:1 assessment with therapeutic communication and active listening, provided clear and simple instructions, medication administration/education/monitoring, positive reinforcement, Q15 minute safety checks. Restraints/seclusion/emergency medication: N/A Justification: Patient is conserved and waiting placement when stable. Pt continues to require a safe and therapeutic milieu.
--- NOTE | 2021-03-20 13:49 | NUR ---
Pt. attended group today. We talked about how we all look at the world differently due to our core beliefs. These core beliefs then inform thoughts and behaviors. Each pt. identified one negative core belief and then wrote out three truths that contradict their negative beliefs to work on thinking differently. Pt. engaged well in the group. He shared his negative core belief with everyone in the group. His negative core belief was "I am abnormal". He was able to change his lens to " I am beloved by God". He shared his thoughts appropriately with the group. His thought content and thought process were WNL. He was alert and oriented X 4. At times he needed redirecting as he can tend to talk for a long period of time and not notice others are wanting to participate. His demeanor was pleasant, calm and compliant. Marline Singh LCSW
[2021-03-20] MEDS: PALIPERIDONE 3 MG TAB.ER.24 PO SCH (20:02)
[2021-03-20 20:17] VITALS: BP 111/72
[2021-03-20] MEDS: diphenhydrAMINE 25mg capsule PO PRN (20:39)
--- NOTE | 2021-03-20 21:05 | NUR ---
Nursing Progress Note: Legal hold: 5250 Client on involuntary status for GD. Report received from Steph YOUNGBLOOD with use of SBAR. Why are they here: Patient was admitted to [facility] from PCU where he was treated for pneumonia. Pt is unable to state a viable plan for food, clothing, or penitentiary. Patient is confused and disorganized in thought process with the belief that his parents took all his possessions and that he will go live on an empty parcel of land. Pt has been homeless and living on the streets. He has a history of methamphetamine and marijuana use and is not med compliant. Assessment What has happened this shift: Pt was smiling and walking in the hallways at change of shift. Pt isolates to himself and speech is disorganized. Pt c/o itching on his stomach, groin and legs and was given prn benadryl. Has some reservation about taking benadryl because he doesnt like sleeping meds, but he took the benadryl. Pt declines colace stating he had 3 BMs today. Pt seems to be in a pleasant mood. S/I, H/I: Pt denies. A/VH: Pt denies. Sleep: see sleep hours ADLs: Independent Group attendance: N/A Were meds taken: Yes, all but Colace. Any med S/E: None noted or reported Mental Status Exam Appearance: Middle aged man with long brown hair and unkempt teran. Dressed in green unit scrubs. Eye contact: Good Behavior: Guarded, paces, reads the Bible. Speech: Soft spoken, mumbles, pressured Mood: euthymic Affect: Guarded Thought process: Delusional, Disorganized Thought Content: talks about itching Cognition: A/O X 3 Insight: Fair Judgment: Fair Interventions PRN's used: N/A Therapeutic interventions: Provided 1:1 assessment with therapeutic communication and active listening, provided clear and simple instructions, medication administration/education/monitoring, positive reinforcement, Q15 minute safety checks. Restraints/seclusion/emergency medication: N/A Justification: Patient is conserved and waiting placement when stable. Pt continues to require a safe and therapeutic milieu.
[2021-03-21] MEDS: clindamycin 150mg capsule PO SCH ×4 (02:12→19:57)
[2021-03-21] MEDS: ipratropium/albuterol 3ml nebule NEB SCH ×6 (02:38→23:02)
[2021-03-21 07:46] VITALS: BP 113/80
[2021-03-21] MEDS: diphenhydrAMINE 25mg capsule PO PRN ×3 (07:53→20:41)
[2021-03-21] MEDS: pantoprazole 40mg Tablet.DR PO SCH (07:53)
[2021-03-21] MEDS: fluticasone nasal spray 16GM bottle NS SCH (07:53)
[2021-03-21] MEDS: nystatin 15 GM powder TP SCH ×2 (08:00→20:00)
[2021-03-21] MEDS: docusate sod 100mg capsule PO SCH ×2 (08:00→19:58)
[2021-03-21] MEDS: lactobacillus rhamnosus 10,000 MMU CELLS/CAPSULE PO SCH ×2 (08:17→19:57)
[2021-03-21] MEDS: levoFLOXACIN 750MG TABLET PO SCH (11:34)
[2021-03-21] MEDS ORDERED: LACT1CAP26 PO (13:16)
[2021-03-21] MEDS ORDERED: IPRA4AER IH (13:16)
[2021-03-21] MEDS ORDERED: PALI6TAB6 PO (13:16)
[2021-03-21] MEDS ORDERED: LEVO750T46 PO (13:16)
[2021-03-21] MEDS ORDERED: FLUT1DIS15 INH (13:16)
[2021-03-21] MEDS ORDERED: DOCU100C40 PO (13:16)
[2021-03-21] MEDS ORDERED: PANT40TA54 PO (13:16)
[2021-03-21] MEDS ORDERED: CLIN300C71 PO (13:16)
[2021-03-21] MEDS ORDERED: FLUT16SP13 BOTHNARES (13:16)
--- NOTE | 2021-03-21 13:58 | NUR ---
Pt attended group today. We talked about reframing thoughts utilizing a picture where they had to write down what thoughts there were struggling with today. Patients then constructed Vision Pages/Collages with inspiring words and pictures to work toward rewiring these thoughts into positive affirmations. Pt. engaged well in the group. He jumped right in and put his collage together. He understood the concept and shared his negative thoughts/emotions and then showed the positive in his collage. He was alert and oriented X 4. His thought content and thought process was WNL. Marline Singh LCSW
--- NOTE | 2021-03-21 17:07 | NUR ---
Group Art Tx, Continued: Patient was coherent and able to focus, following and completing all directives. Patients focus and topic of expression remained God centered... his ability to follow the sentence completion was also improved and seemed to reflect his inner beliefs and needs.His speech remains pressured, yet he will slow down when asked and speak more clearly. He wrote: "I am standing at the doorway to hope, I see God of wrath, anger and love... opportunity. I think no excuses for failure, cannot fail or I will . I fee being guided, must complete daily tasks. I wish, hope to be more hopeful, help to be helpful. I want love and acceptance, a place to call home. I need to survive everyday without accidents, without failure, with Love. I will call on the Lord. I believe in gods' ability to finish work in progress. I am God's creation, not a failure, Gods' beloved son." *Please refer to the [facility] Case Notes for entire overview. Mi Hoyos MA, [employer] #[id number] [facility] Art Therapist Addendum: 03/21/21 at 1712 by Mi Hoyos SS Amended: Links added.
--- NOTE | 2021-03-21 17:29 | NUR ---
Nursing Progress Note: Legal hold: 5250 Client on involuntary status for GD. Report received from Lori YOUNGBLOOD with use of SBAR. Why are they here: Patient was admitted to [facility] from PCU where he was treated for pneumonia. Pt is unable to state a viable plan for food, clothing, or fci. Patient is confused and disorganized in thought process with the belief that his parents took all his possessions and that he will go live on an empty parcel of land. Pt has been homeless and living on the streets. He has a history of methamphetamine and marijuana use and is not med compliant. Assessment What has happened this shift: RN received pt. awake and pacing hallway at beginning of shift. Pt. ate all meals in community room and took all medications. Pt. observed pacing hallway and attempting to call motels. Pt. appears anxious. 1:1 done at bedside, pt. reports feeling anxious about his discharge tomorrow. Pt. c/o of itchiness and received Benadryl 25mg po with good effect. S/I, H/I: Pt denies. A/VH: Pt denies. Sleep: Pt. slept 6.50 hrs on NOC shift and napped intermittently during the day. ADLs: Independent Group attendance: Yes Were meds taken: Yes, all but Colace. Any med S/E: Denies, none observed. Mental Status Exam Appearance: Middle aged man with long brown hair and unkempt teran. Dressed in green unit scrubs. Eye contact: WNL Behavior: Guarded, pacing. Speech: Soft spoken, mumbles Mood: Anxious Affect: Constricted Thought process: Linear Thought Content: Focused on discharge planning. Cognition: A/O X 3 Insight: Fair Judgment: Fair Interventions PRN's used: None Therapeutic interventions: Provided 1:1 assessment with therapeutic communication and active listening, provided clear and simple instructions, medication administration/education/monitoring, positive reinforcement, Q15 minute safety checks. Restraints/seclusion/emergency medication: N/A Justification: Patient is conserved and waiting placement when stable. Pt continues to require a safe and therapeutic milieu.
[2021-03-21 19:27] VITALS: BP 114/74
[2021-03-21] MEDS: PALIPERIDONE 3 MG TAB.ER.24 PO SCH (19:55)
--- NOTE | 2021-03-21 22:47 | NUR ---
Nursing Progress Note: Legal hold: 5250 Client on involuntary status for GD. Report received from Parveen YOUNGBLOOD with use of SBAR. Why are they here: Patient was admitted to [facility] from [facility] where he was treated for pneumonia. Pt is unable to state a viable plan for food, clothing, or snf. Patient is confused and disorganized in thought process with the belief that his parents took all his possessions and that he will go live on an empty parcel of land. Pt has been homeless and living on the streets. He has a history of methamphetamine and marijuana use and is not med compliant. Assessment: What has happened this shift: PT pacing the hallway, Asked pt how his day was. Pt stated that he was excited about D/C tomorrow. He wanted me to print out maps of [place] and [place]. He also wanted to see if he could get a battery operated inhaler as he planned to stay at hotels and ride a bike to where he needed to go after release. Pt took all medications except colace. Pt asked for Benadryl for itching. Pt continues to talk about riding bike and asking about maps. S/I, H/I: Pt denies. A/VH: Pt denies. Sleep: see sleep hrs ADLs: Independent Group attendance: No evening groups Were meds taken: Yes, all but Colace. Any med S/E: Denies, none observed. Mental Status Exam: Appearance: Middle aged man with long brown hair and unkempt teran. Dressed in green unit scrubs. Eye contact: WNL Behavior: cooperative/pleasant, pacing. Speech: Soft spoken, mumbles Mood: Anxious Affect: Constricted Thought process: Linear Thought Content: Focused on discharge planning. Cognition: A/O X 3 Insight: Fair Judgment: Fair Interventions: PRN's used: Benadryl Therapeutic interventions: Provided 1:1 assessment with therapeutic communication and active listening, provided clear and simple instructions, medication administration/education/monitoring, positive reinforcement, Q15 minute safety checks. Restraints/seclusion/emergency medication: N/A Justification: Patient is conserved and waiting placement when stable. Pt continues to require a safe and therapeutic milieu.
[2021-03-22] MEDS: clindamycin 150mg capsule PO SCH ×4 (01:52→20:01)
[2021-03-22] MEDS: ipratropium/albuterol 3ml nebule NEB SCH ×6 (02:46→23:28)
[2021-03-22] MEDS: acetaminophen 325mg tablet PO PRN (07:56)
[2021-03-22] MEDS: lactobacillus rhamnosus 10,000 MMU CELLS/CAPSULE PO SCH ×2 (07:56→20:01)
[2021-03-22] MEDS: diphenhydrAMINE 25mg capsule PO PRN ×3 (07:56→20:49)
[2021-03-22] MEDS: pantoprazole 40mg Tablet.DR PO SCH (07:56)
[2021-03-22] MEDS: fluticasone nasal spray 16GM bottle NS SCH (07:58)
[2021-03-22] MEDS: docusate sod 100mg capsule PO SCH ×2 (07:58→20:00)
[2021-03-22] MEDS: nystatin 15 GM powder TP SCH ×2 (07:58→20:00)
[2021-03-22 08:00] VITALS: BP 125/84
--- NOTE | 2021-03-22 10:57 | NUR ---
Called multiple rehabs ([facility], [facility], and [facility]). Tristen does not qualify as he can walk more than 300 ft. Driver Messenger called [facility] again to attempt to schedule follow up. Was informed to fax packet to an alternate fax (different than the one yesterday). Driver Messenger will call again later today to try to schedule follow up. CANDY Angel
[2021-03-22] MEDS: levoFLOXACIN 750MG TABLET PO SCH (12:35)
--- NOTE | 2021-03-22 12:48 | NUR ---
PT STATED HE WAS DONE WITH HIS SVN AFTER "3 PUFFS" HANDED IT BACK TO RT Addendum: 03/22/21 at 1250 by Mary Amaro RT Amended: Links added.
--- NOTE | 2021-03-22 14:06 | NUR ---
Pt. attended group today. We discussed Radical Acceptance and Distress Tolerance skills. This Cork Insulator led a visualization that Pt. participated in. We completed a Self-Care Wheel exercise as well. Pt. engaged in the group well. He was a bit restless today getting up a lot and walking in and out of the room. He did engage in all aspects of the group and readily shared his thoughts with the group. he shared that he enjoys exercise, praying, nature and being as kind and nice as he can be. He shared that he does struggle with anger at times but all these things help him process the anger out and into positive areas. He was alert and oriented X4. His thought content and thought process was WNL. His demeanor was calm though he appeared a bit anxious today as well while he processed his concerns about his discharge. Marline Singh LCSW
--- NOTE | 2021-03-22 16:10 | NUR ---
Nursing Progress Note: Tristen Champion Legal hold: 5250 Client on involuntary status for GD. Report received from FORD Sandoval with use of SBAR. Why are they here: Patient was admitted to [facility] from [facility] where he was treated for pneumonia. Pt is unable to state a viable plan for food, clothing, or [facility]. Patient is confused and disorganized in thought process with the belief that his parents took all his possessions and that he will go live on an empty parcel of land. Pt has been homeless and living on the streets. He has a history of methamphetamine and marijuana use and is not med compliant. Assessment What has happened this shift: Patient observed walking around the unit at change of shift. He joined in the community room with peers for breakfast. Patient retreated back to his room shortly after. He is compliant with all medications. 1:1 assessment completed, lungs diminished throughout. Patient c/o lung/chest pain this morning upon deep inhalation. He is noted to have increased aeration and SOB with exertion. Oxygen saturation 97% on room air, no s/s of respiratory distress. Patient was observed pacing the hallways, appearing restless and bored throughout the day. He endorsed to this securities underwriter that he is anxious about where hes going to go and he wants to buy a bicycle as soon as he leaves and ride to [place]. Patient noted asking this securities underwriter for a large map that will show back roads that he can ride his bicycle on from [place] to [place]. Patient c/o itchiness on this shift and was given PRN Benadryl with effectiveness. He denies SI/HI, AH or VH. Does not appear to be responding to internal stimuli. He participated in group therapy today and was observed standing up and walking in and out of the room a lot, appearing restless. He did participate in the group activities and was noted periodically socializing with peers. He was active on the unit throughout the day today. He participated in the community room for all snack and meal times. S/I, H/I: Pt denies. A/VH: Pt denies. Does not appear to be responding to internal stimuli. Sleep: Pt. slept 7 hours last night per NOC shift and took one short nap today. ADLs: Independent Group attendance: Yes Were meds taken: Yes, except for Colace d/t loose stools Any med S/E: Denies, none observed or reported. Mental Status Exam Appearance: Middle aged man with long brown hair and unkempt teran. Dressed in green unit scrubs. Eye contact: Good, WNL Behavior: Guarded, pacing, polite, pleasant Speech: Soft spoken, mumbles Mood: Anxious, appears restless Affect: Constricted Thought process: Linear Thought Content: Focused on discharge planning. Wanting to buy a bicycle and go to [place]. Cognition: A&O X 3 Insight: Fair Judgment: Fair Interventions PRN's used: Benadryl, Tylenol Therapeutic interventions: Provided 1:1 assessment with therapeutic communication and active listening, provided clear and simple instructions, medication administration/education/monitoring, positive reinforcement, Q15 minute safety checks. Restraints/seclusion/emergency medication: N/A Justification: Pt continues to require a safe and therapeutic environment while safe discharge plan is arranged.
[2021-03-22 19:35] VITALS: BP 111/80
[2021-03-22] MEDS: PALIPERIDONE 3 MG TAB.ER.24 PO SCH (20:01)
--- NOTE | 2021-03-22 21:28 | NUR ---
Nursing Progress Note: Tristen Champion Legal hold: 5250 Client on involuntary status for GD. Report received from FORD Arango with use of SBAR. Why are they here: Patient was admitted to [facility] from [facility] where he was treated for pneumonia. Pt is unable to state a viable plan for food, clothing, or nursing home. Patient is confused and disorganized in thought process with the belief that his parents took all his possessions and that he will go live on an empty parcel of land. Pt has been homeless and living on the streets. He has a history of methamphetamine and marijuana use and is not med compliant. Assessment What has happened this shift: Pt in hallway on arrival to unit on shift change. Pt approached nurse to inquire about bathing needs , clothes that needed washing, and inhalers. Pt may be D/C 03/23/21 to [facility], previous plan was rehab. Pt excited to leave, Pt stated he wants to go to [place] and be prepared to go. Pt stated he ate meals and had snacks, joined group and was seen socializing in Rec room watching TV. Pt took PRN Benadryl for itchiness, and seems in a good mood. S/I, H/I: Pt denies. A/VH: Pt denies. Does not appear to be responding to internal stimuli. Sleep: Pt. See sleep hrs ADLs: Independent Group attendance: Yes Were meds taken: All meds taken except Colace Any med S/E: Denies, none observed or reported. Mental Status Exam Appearance: Middle aged man with long brown hair and unkempt teran. Dressed in green unit scrubs. Eye contact: Good, WNL Behavior: Guarded, pacing, polite, pleasant Speech: Soft spoken, mumbles Mood: Anxious Affect: Constricted Thought process: Linear Thought Content: Focused on discharge planning. Wanting to buy a bicycle and go to [place]. Cognition: A&O X 3 Insight: Fair Judgment: Fair Interventions PRN's used: Benadryl Therapeutic interventions: Provided 1:1 assessment with therapeutic communication and active listening, provided clear and simple instructions, medication administration/education/monitoring, positive reinforcement, Q15 minute safety checks. Restraints/seclusion/emergency medication: N/A Justification: Pt continues to require a safe and therapeutic environment while safe discharge plan is arranged.
[2021-03-23] MEDS: clindamycin 150mg capsule PO SCH ×3 (02:27→13:21)
[2021-03-23] MEDS: ipratropium/albuterol 3ml nebule NEB SCH ×3 (03:50→11:06)
[2021-03-23 07:24] VITALS: BP 115/74
[2021-03-23] MEDS: docusate sod 100mg capsule PO SCH (08:00)
[2021-03-23] MEDS: nystatin 15 GM powder TP SCH (08:00)
--- NOTE | 2021-03-23 08:42 | NUR ---
After several phone calls and mulitiple faxes, spoke with [facility] and was informed they are not taking any urgent follow up appointments and cannot see Tristen until after May 13. CANDY Angel Addendum: 03/23/21 at 1042 by Debra Rubio [facility] called back and scheduled Tristen for an appointment on 03/29/21 at 9 AM with AARON Pereyra. CANDY Angel
[2021-03-23] MEDS: lactobacillus rhamnosus 10,000 MMU CELLS/CAPSULE PO SCH (08:56)
[2021-03-23] MEDS: pantoprazole 40mg Tablet.DR PO SCH (08:56)
[2021-03-23] MEDS: fluticasone nasal spray 16GM bottle NS SCH (08:57)
[2021-03-23] MEDS: diphenhydrAMINE 25mg capsule PO PRN (09:43)
[2021-03-23] MEDS: levoFLOXACIN 750MG TABLET PO SCH (11:40)
--- NOTE | 2021-03-23 14:22 | NUR ---
Discharge Note: Pt. discharged from the unit at 1422, ambulated accompanied by staff to [facility]. Pt. plans to buy a bike there and then get a hotel. Pt. was sent with bottles of his prescribed medications, no smoking cessation required. Pt's belongings were inventoried and returned to him by [employer]. This bond writer reviewed discharge instructions and medications with pt and he reported understanding. Pt. is able to contract for safety.
== END 2021-03-23 14:20 | disposition home or self-care (01) | DRG 885 ==
LOC: ADULT MH 18:00
PROVIDERS: ADMIT Psychiatry & Neurology Psychiatry; ATTEND Psychiatry & Neurology Psychiatry
DX: F25.0 Schizoaffective disorder, bipolar type (principal); F15.20 Other stimulant dependence, uncomplicated; J44.0 Chronic obstructive pulmonary disease with (acute) lower respiratory infection; F39 Unspecified mood [affective] disorder; K21.9 Gastro-esophageal reflux disease without esophagitis; G89.29 Other chronic pain; D64.9 Anemia, unspecified; F12.90 Cannabis use, unspecified, uncomplicated; D75.839 Thrombocytosis, unspecified; K59.00 Constipation, unspecified; F29 Unspecified psychosis not due to a substance or known physiological condition; Z88.8 Allergy status to other drugs, medicaments and biological substances; Z79.899 Other long term (current) drug therapy; Z59.00 Homelessness unspecified
CPT/HCPCS: 36415; 71045; 80053; 80061; 83036; 85025; 87081; 94640; 94760; Q0163